=== PATIENT | male | born 1995 | race Caucasian/White ===

== ENCOUNTER 2021-05-18 17:48 | Emergency (ER) | payer BC ==
[2021-05-18 22:21] LABS: Absolute Lymphocytes (CBC) 3.6 K/uL (0.7-4.9); Basophils % 0.5 % (0-1.3); Hematocrit 42.9 % (39.6-49.0); Lymphocytes % 33.1 % (15.3-44.8); MPV 8.2 fL (7.6-11.3); RBC Red Blood Cell Count 4.67 M/uL (4.33-5.43)
[2021-05-18] MEDS ORDERED: KETOROLAC 30 MG/ML INJ ONE (22:33)
[2021-05-18 22:36] LABS: Albumin 4.2 g/dL (3.4-5.0); Bilirubin Total 0.2 mg/dL (0.2-1.0); Potassium 3.5 mmol/L (3.5-5.1); Protein, Total 7.3 g/dL (6.4-8.2)
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
[2021-05-19 00:45] VITALS: BP 131/88; TEMP 98.8; O2SAT 96
== END 2021-05-18 23:13 | disposition home or self-care (01) ==
LOC: ER 17:48
DX: G89.29 Other chronic pain (principal)
CPT/HCPCS: 36415; 80053; 85025; 96372; 99284

== ENCOUNTER 2021-07-08 14:31 | Emergency (ER) | payer BC ==
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
[2021-07-08 15:43] LABS: SARS-COV-2 RT PCR NEGATIVE (NEGATIVE)
[2021-07-08] MEDS ORDERED: METOCLOPRAMIDE 10 MG/2mL INJ ONE (16:57)
[2021-07-08] MEDS ORDERED: ACETAMINOPHEN 325 MG TABLET ONE (16:57)
[2021-07-08] MEDS ORDERED: NA CHLORIDE 0.9% 1,000 ML ONE ×2 (16:58→20:48)
[2021-07-08 17:24] LABS: Absolute Lymphocytes (CBC) 1.5 K/uL (0.7-4.9); Basophils % 0.4 % (0-1.3); Hematocrit 42.2 % (39.6-49.0); Lymphocytes % 7.1 % (15.3-44.8); MPV 7.7 fL (7.6-11.3); RBC Red Blood Cell Count 4.67 M/uL (4.33-5.43)
[2021-07-08 17:43] LABS: ALT/SGPT 45 U/L (12-78); AST/SGOT 16 U/L (15-37); Albumin 3.8 g/dL (3.4-5.0); Alkaline Phosphatase 62 U/L (45-117); BUN Blood Urea Nitrogen 11 mg/dL (7-18); Bicarbonate 27 mmol/L (21-32); Bilirubin Direct 0.1 mg/dL (0-0.2); Bilirubin Total 0.6 mg/dL (0.2-1.0); Glucose Level 94 mg/dL (74-106); Lipase 53 U/L (73-393); Potassium 3.8 mmol/L (3.5-5.1); Protein, Total 7.6 g/dL (6.4-8.2); Sodium Level 135 mmol/L (136-145)
--- NOTE | 2021-07-08 18:35 | RAD REPORT ---
EXAM DESCRIPTION: CT - Head Brain Wo Cont - 07/08/2021 6:22 pm CLINICAL HISTORY: headache, fever COMPARISON: No comparisonsNo comparisons TECHNIQUE: All CT scans are performed using dose optimization technique as appropriate and may inclu de automated exposure control or mA/KV adjustment according to patient size. FINDINGS: No intracranial hemorrhage, hydrocephalus or extra-axial fluid collection.No areas of brai n edema or evidence of midline shift. Air-fluid levels in the maxillary sinuses. Ethmoid air cell thickening. The calvarium is intact. IMPRESSION: No acute intracranial abnormality. Findings suggestive of acute sinusitis.
--- NOTE | 2021-07-08 18:42 | RAD REPORT ---
EXAM DESCRIPTION: CTChest Abdomen Pelvis W Cont - 07/08/2021 6:25 pm CLINICAL HISTORY: fever, vomiting COMPARISON: No comparisons TECHNIQUE: CT of the chest, abdomen, and pelvis was performed. All CT scans are performed using dose optimization technique as appropriate and may include automated exposure control or mA/KV adjustment according to patient size. FINDINGS: Thorax: Chest Wall: No abnormal mass Lungs: 6 mm right lower lobe pulmonary nodule. Mild dependent atelectasis. Pleura: No effusions or pneumothorax. Agnes/Mediastinum: No lymphadenopathy. Aorta/Pulmonary Arteries: Unremarkable Heart: Normal size. Abdomen/Pelvis: Liver: No acute abnormality or suspicious lesions. Biliary: No biliary ductal dilatation. Stomach: No significant focal abnormality. Duodenum: No significant focal abnormality. Pancreas: No significant abnormality. Spleen: No significant abnormality. Adrenal: No suspicious lesions. Kidney/ureter: No hydronephrosis. No renal calculi. Retroperitoneum: No retroperitoneal adenopathy. Vascular: No aneurysm. Bowel: Left lower quadrant colostomy. Large colonic stool burden. Brenda's pouch.. Peritoneum: No ascites or free air. Bladder: Circumferential bladder wall thickening with gas. Reproductive: No adnexal masses. Bones: No acute fracture. Other: n/a IMPRESSION: 1. Bladder wall thickening with gas may reflect cystitis. 2. Left-sided colostomy with large colonic stool burden may represent constipation. No bowel obstruct ion. 3. No acute findings within the chest.
[2021-07-08] MEDS ORDERED: MORPHINE 4 MG/ML SYR ONE ×2 (19:02→22:17)
[2021-07-08] MEDS ORDERED: ONDANSETRON 4 MG/2 ML VIAL ONE (19:03)
[2021-07-08 19:25] LABS: Urine Blood 1+ (Negative); Urine Glucose Negative (Negative); Urine Protein Negative (Negative); Urine pH 6.5 (5.0-7.0)
[2021-07-08] MEDS ORDERED: LIDOCAINE 1% MPF 30 ML VIAL ONE (19:34)
[2021-07-08 19:50] LABS: Urine Bacteria LOADED /HPF (NONE SEEN); Urine RBC <5 /HPF (NONE SEEN)
--- NOTE | 2021-07-08 19:51 | RAD REPORT ---
EXAM DESCRIPTION: US - Scrotum Testicles - 07/08/2021 7:33 pm CLINICAL HISTORY: scrotal pain COMPARISON: Scrotum Testicles dated 06/04/2021 FINDINGS: The right testicle 4.3 x 2.2 x 3 cm with volume of 14.2 mL. No intratesticular masses or e vidence of testicular torsion. The left testicle 4 x 1.9 x 2.9 cm with volume of 11.5 mL. No intratesticular masses or evidence of t esticular torsion. Both epididymides are normal in size and appearance. Small left hydrocele. IMPRESSION: Bilateral testicular blood flow. No significant change compared with 06/04/2021.
[2021-07-08 20:38] LABS: Blood Morphology Comment NOT SEEN (NOT SEEN); Platelet Estimate ADEQ
[2021-07-08 21:39] LABS: Appearance CLEAR (CLEAR); Body Fluid Source CSF; Body Fluid WBC 1 /mm^3; Color of fluid Colorless (COLORLESS); Fluid Total Volume 6 ml
[2021-07-08 21:45] LABS: Appearance CLEAR (CLEAR); Body Fluid Source CSF; Body Fluid WBC 1 /mm^3; Color of fluid Colorless (COLORLESS)
[2021-07-08] MEDS ORDERED: CEFTRIAXONE 1000 MG/VIAL ONE (22:18)
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
[2021-07-08 23:13] VITALS: TEMP 98.6; O2SAT 99
[2021-07-08 23:14] VITALS: BP 125/85
[2021-07-09 10:21] LABS: CSF Glucose 58
== END 2021-07-08 23:09 | disposition home or self-care (01) ==
LOC: ER 14:31
DX: N39.0 Urinary tract infection, site not specified (principal); J01.80 Other acute sinusitis; Z20.822 Contact with and (suspected) exposure to COVID-19
CPT/HCPCS: 87040 ×2; 87070 ×2; 87088; 85025; 87086; 80048; 36415; 89050 ×2; 86308; 84157; 82945; 80076; 87081; 83605; 87077; 87186; 83690; 84145; 0240U; 70450; 71260; 74177; 76870; 62270; 96375; 96374; 99283; Q9967; J2765; J7030 ×2; J2405; 81003; 81015

== ENCOUNTER 2021-07-24 06:47 | Day surgery (SDC) | payer BC ==
[2021-07-24] MEDS ORDERED: Ringers Lactate 1,000 ML IV ONE (07:16)
[2021-07-24] MEDS ORDERED: MIDAZOLAM HCL 2 MG/2 ML INJ IV ONE (07:50)
[2021-07-24] MEDS ORDERED: MIDAZOLAM HCL 2 MG/2 ML INJ ONE (07:51)
[2021-07-24] MEDS ORDERED: propofoL 200 MG/20 ML VIAL IV ONE ×2 (08:00→08:12)
[2021-07-24] MEDS ORDERED: ONDANSETRON 4 MG/2 ML VIAL ONE (08:00)
--- NOTE | 2021-07-24 08:34 | ENDO RPT ---
[address], [address] COLONOSCOPY PROCEDURE REPORT EXAM DATE: 07/24/2021 PATIENT NAME: Lino Cabral MR #: [id number] BIRTHDATE: 1995 ATTENDING: Hector Grayson DR STATUS: outpatient OPERATIONS SUPPORT MANAGER: Amanda Swartz RN and Melani Olmos INDICATIONS: The patient is a 26 yr old Male here for a colonoscopy due to History of Colostomy due to trauma PROCEDURE PERFORMED: Screening Colonoscopy MEDICATIONS: Per Anesthesia. ESTIMATED BLOOD LOSS: None CONSENT: The patient understands the risks and benefits of the procedure and understands that these risks include, but are not limited to: sedation, allergic reaction, infection, perforation and/or bleeding. Alternative means of evaluation and treatment include, among others: physical exam, x-rays, and/or surgical intervention. The patient elects to proceed with this endoscopic procedure. DESCRIPTION OF PROCEDURE: During intra-op preparation period all mechanical medical equipment was checked for proper function. Hand hygiene and appropriate measures for infection prevention was taken. Procedure, possible complications, alternatives including, but not limited to possibility of bleeding, perforation, tear, infection, sepsis, need for surgery, need for blood transfusion, were explained to the patient. After the risks, benefits and alternatives of the procedure were thoroughly explained, Informed consent was verified, confirmed and timeout was successfully executed by the treatment team. The patient was placed in the left lateral position. A digital rectal exam was performed and revealed no abnormalities of the rectum. After appropriate level of anesthesia, the scope was passed. The EC-[id number] ([id number]) endoscope was introduced through the anus and advanced to the ileum. The quality of the prep was poor. The instrument was then slowly withdrawn as the colon was fully examined. Scope withdrawal time was 8 minutes. COLON FINDINGS: Unable to evaluate rectum due to stool / material burden - solid, scope passed to 21 cm from anal verge. Completed colostomy through RUQ stoma to distal ileum. The colonic mucosa appeared normal. Retroflexed views revealed no abnormalities. The scope was then completely withdrawn from the patient and the procedure terminated. ADVERSE EVENTS: There were no complications. IMPRESSIONS: 1. Unable to evaluate rectum due to stool / material burden - solid Completed colostomy through RUQ stoma to distal ileum 2. The colonic mucosa appeared normal RECOMMENDATIONS: 1. avoid NSAIDS for 2 weeks 2. fiber rich diet 3. follow-up: office 2 week(s) 4. Monitor for any evidence of rectal bleeding. 5. increase dietary water RECALL: Return in 7 day(s) for Flexible Sigmoidoscopy. Hector Grayson DR eSigned: Hector Grayson DR 07/24/2021 8:34 AM cc: CPT CODES: ICD9 CODES: PATIENT NAME: Lino Cabral MR#: [id number]
[2021-07-24 09:11] VITALS: TEMP 97.8
[2021-07-24 09:12] VITALS: O2SAT 98
[2021-07-24 09:13] VITALS: BP 115/78
== END 2021-07-24 09:15 | disposition home or self-care (01) ==
LOC: OR 06:47
PROVIDERS: ATTEND Surgery
PROC: 0DJD8ZZ Inspection of Lower Intestinal Tract, Via Natural or Artificial Opening Endoscopic (ICD-10-PCS; principal; 2021-07-24 08:00)
DX: Z12.11 Encounter for screening for malignant neoplasm of colon (principal); Z93.3 Colostomy status; Z20.822 Contact with and (suspected) exposure to COVID-19
CPT/HCPCS: 45378; U0003; J2704 ×2; J2250 ×2; J7120; J2405

== ENCOUNTER 2021-08-07 10:51 | Day surgery (SDC) | payer BC ==
[2021-08-07] MEDS ORDERED: Ringers Lactate 1,000 ML IV ONE ×2 (11:02→13:40)
[2021-08-07] MEDS ORDERED: CEFAZOLIN/NS 1gm 1 GM/50 ML BAG ONE (11:03)
[2021-08-07] MEDS ORDERED: ACETAMINOPHEN 500 MG TAB ONE (11:12)
[2021-08-07] MEDS ORDERED: CELECOXIB 100 MG CAPSULE ONE (11:12)
[2021-08-07] MEDS ORDERED: CELECOXIB 100 MG CAPSULE PO ONE (11:15)
[2021-08-07] MEDS ORDERED: ACETAMINOPHEN 500 MG TAB PO ONE (11:15)
[2021-08-07] MEDS ORDERED: METHYLENE BLUE 0.5% 10 ML AMP ONE (12:19)
[2021-08-07] MEDS ORDERED: BUPIVACAINE 0.25% PF 10 ML VIAL ONE (12:21)
[2021-08-07] MEDS ORDERED: LIDOCAINE 1% W/EPI 1:100,000 MDV 50 ML VIAL ONE (13:17)
[2021-08-07] MEDS ORDERED: FENTANYL CITR 100 MCG/2 ML ONE (13:19)
[2021-08-07] MEDS ORDERED: Phenylephrine HCl 10 MG/ML 1 ML VIAL ONE (13:37)
[2021-08-07] MEDS ORDERED: GLYCOPYRROLATE 0.2 MG/ML SYR ONE (13:45)
[2021-08-07] MEDS ORDERED: NEOSTIGMINE 1 MG/ML -5 ML ONE (13:45)
[2021-08-07] MEDS ORDERED: KETOROLAC 30 MG/ML INJ ONE (13:45)
--- NOTE | 2021-08-07 13:48 | P.OP ---
Preoperative diagnosis: Perianal Fistula Postoperative diagnosis: Perianal Fistula Primary procedure: Exam under anesthesia Secondary procedure: Colonscopy to rectal resection Other procedure(s): injection of amniofill to fistula Anesthesia: injection methylene blue Estimated blood loss: <2 cc Specimen: none Findings: fistula communicates with anal canal, rectal stump ~ 15cc in length Complications: None Implants: amniofill Transferred to: Recovery Room Condition: Good
[2021-08-07] MEDS ORDERED: ONDANSETRON 4 MG/2 ML VIAL ONE (14:33)
[2021-08-07] MEDS: HYDROMORPHONE HCL 1 MG/ML INJ ONE ×2 (14:35→14:40)
[2021-08-07 16:04] VITALS: BP 117/78; TEMP 97.9; O2SAT 98
--- NOTE | 2021-08-07 23:47 | OP ---
Date of Procedure: 08/07/2021 Surgeon: Hector Grayson MD, Preoperative Diagnosis: Perianal fistula. Postoperative Diagnosis: Perianal fistula. Procedure Performed: 1.Exam under anesthesia. 2.Colonoscopy to rectal resection. 3.Injection of AmnioFill in the fistulous tract. Anesthesia: General endotracheal. Estimated Blood Loss: Less than 2 cc. Specimen: None. Findings: The patient's rectal stump was approximately 15 cm in length. A suture was appreciated at the distal aspect. Additionally, there was a small punctate opening on the 7 o'clock to 8 o'clock p osition of the proximal rectum. This did not appear to be a fistulous connection; however, I was uns ure if this was a fistulous connection initially, but it turned out it was not. The fistula ultimate ly turned out to be communicated with the anal canal from the scrotal fistula. Complications: None. Implants: AmnioFill. The patient was transferred to recovery room in good condition. Procedure In Detail: After informed consent was obtained, the patient was brought to the operating r oom, prepped and draped in usual sterile fashion. After adequate anesthesia was achieved, the patien t was placed in the lithotomy position. A rigid proctoscopy was performed after dilating the anus up gently with lubrication. The anus was found to be quite patulous prior, but did not require any sig nificant dilatation other than simple digital examination. The proctoscope was advanced to approxima tely 14 to 15 cm in length. It was difficult to maintain air in the anal canal as the anus was quite patulous and tone appeared decreased. At this time, I appreciated a suture at the distal aspect of the resection line at the rectal stump. I then withdrew the proctoscope and appreciated 2 small open ings both at approximately the 8 o'clock position; one was in the rectum, which did not appear to hav e any leakage of material. Pulling the proctoscope back to the anal vault near the dentate line, I a ppreciated a small opening near the dentate line at approximately 7 to 8 o'clock position, which appe ared to have an epithelialized tract concerning for a possible fistula. At this time, then I opted t o place the colonoscope into the patient's rectal stump and once again verified the above findings. I then injected methylene blue through a fistulous tract in his scrotum, which was quite easy to appr eciate. It was at the base of the scrotum. I injected methylene blue using a soft Angiocath and it injected quite easily, and the colonoscope appreciated methylene blue dye emanating from near the chris verge as described above into the 7 to 8 o'clock position. This appeared to be the fistulous tract . I then examined the previous area of concern for fistula and did not find any methylene blue emana ting from this. At this point, I opted to not place any clips as it was near the dentate line and as such, I opted to terminate this portion of the procedure. As such, the colon was rinsed out. I irr igated until clean and then the colonoscope was removed. I then mixed AmnioFill into a slurry and pl aced it into a 20 cc syringe. Using a 14-gauge Angiocath, injected the AmnioFill product into the fi stulous tract after cleansing it with sterile saline. I then placed a small patch of AmnioFill into the anal aspect of this area as well and terminated the procedure after placing Gelfoam into the anus and covering the AmnioFill with a sterile dressing. The patient tolerated the procedure well withou t evidence of complication and transferred to PACU in good condition. All counts were correct at the end of the case. FADY/MIHIR Voice ID: [id number] Report ID: [id number]
== END 2021-08-07 15:50 | disposition home or self-care (01) ==
LOC: OR 10:51
PROVIDERS: ATTEND Surgery
PROC: 0DJD8ZZ Inspection of Lower Intestinal Tract, Via Natural or Artificial Opening Endoscopic (ICD-10-PCS; principal; 2021-08-07 12:45)
PROC: 0DQQ7ZZ Repair Anus, Via Natural or Artificial Opening (ICD-10-PCS; 2021-08-07 12:45)
DX: K60.5 Anorectal fistula (principal); Z20.822 Contact with and (suspected) exposure to COVID-19; Z93.3 Colostomy status
CPT/HCPCS: 45378; 46999; U0003; J2370; J3010; J1170; J2710; J0690; J7120 ×2; J2405

== ENCOUNTER 2021-11-24 12:56 | Emergency (ER) | payer BC ==
--- OUTSIDE RECORDS SUMMARY | 2021-11-24 12:59 | XMS REPORT | Continuity of Care Document ---
:1995 Author Organization [facility] t Address [address] [place] [address] Care Team Providers Name Role Phone Kendall Attending Clinician Unavailable LAVINIA Attending Clinician Unavailable MARCO ANTONIO Attending Clinician Unavailable Benigno Attending Clinician Unavailable SAMEER Attending Clinician Unavailable LAVINIA Attending Clinician Unavailable TC ORNELAS Attending Clinician Unavailable AIYANA Attending Clinician Unavailable Maude Redmond Attending Clinician [phone] Kiki Attending Clinician Unavailable LAVINIA Admitting Clinician Unavailable MARCO ANTONIO Admitting Clinician Unavailable Benigno Admitting Clinician Unavailable Kiki Admitting Clinician Unavailable Payers Payer Name Policy Type Policy Number Effective Date Expiration Date S ourromelia BCBS ADV O [id number] 2021 [place]CHANGE 00:00:00 [place] [id number] 2020 ADVANTAGE (HMO) 00:00:00 [facility] [id number] 2020 HEALTH 00:00:00 BLUE ADVANTAGE [id number] 2021 [facility] - 00:00:00 BCBS Problems Condition Condition Condition Status Onset Resolution Last Treating Co mments Source Name Details Category Date Date Treatment Clinician Date Major Major Problem Active 2020-07 NPI:186 depressive Depressive 08-08 62768 disorder Disorder 00:00: 00 Posttrauma Posttrauma Problem Active 2020-07 N PI:186 tic stress tic Stress 08-08 23306 disorder Disorder 00:00: 00 Allergies, Adverse Reactions, Alerts Allergy Allergy Status Severity Reaction(s) Onset Inactive Treating Comm ents Source Name Type Date Date Clinician NO KNOWN Allergy Active NPI:118 ALLERGIE [id number] S Social History Smoking Status Start Date Stop Date Source Never Smoker Medications Ordered Filled Start Stop Current Ordering Indication Dosage Frequency Signature Comments Components Source Medication Medication Date Date Medication? Clinician (SIG) Name Name doxepin 25 doxepin 25 No doxepin 25 NPI:186 mg capsule mg capsule mg capsule [id number] TAKE 1 TAKE 1 TAKE 1 CAPSULE BY CAPSULE BY CAPSULE BY MOUTH ONCE MOUTH ONCE MOUTH ONCE DAILY AT DAILY AT DAILY AT BEDTIME BEDTIME BEDTIME doxepin 50 doxepin 50 No doxepin 50 NPI:186 mg capsule mg capsule mg capsule [id number] TAKE 1 TO 2 TAKE 1 TO 2 TAKE 1 TO CAPSULES BY CAPSULES BY 2 CAPSULES MOUTH ONCE MOUTH ONCE BY MOUTH DAILY AT DAILY AT ONCE DAILY BEDTIME BEDTIME AT BEDTIME gabapentin gabapentin No gabapentin NPI:186 400 mg 400 mg 400 mg [id number] capsule capsule capsule TAKE 1 TAKE 1 TAKE 1 CAPSULE BY CAPSULE BY CAPSULE BY MOUTH THREE MOUTH THREE MOUTH TIMES DAILY TIMES DAILY THREE FOR 27 DAYS FOR 27 DAYS TIMES DAILY FOR 27 DAYS hydrocodone hydrocodone No hydrocodon NPI:186 7.5 7.5 e 7.5 1922321 mg-acetamin mg-acetamin mg-acetami ophen 325 ophen 325 nophen 325 mg tablet mg tablet mg tablet TAKE 1 TAKE 1 TAKE 1 TABLET BY TABLET BY TABLET BY MOUTH 4 MOUTH 4 MOUTH 4 TIMES DAILY TIMES DAILY TIMES FOR 27 DAYS FOR 27 DAYS DAILY FOR 27 DAYS methocarbam methocarbam No methocarba NPI:186 ol 750 mg ol 750 mg mol 750 mg [id number] tablet TAKE tablet TAKE tablet 1 TABLET BY 1 TABLET BY TAKE 1 MOUTH TWICE MOUTH TWICE TABLET BY DAILY FOR DAILY FOR MOUTH 27 DAYS 27 DAYS TWICE DAILY FOR 27 DAYS naloxone 4 naloxone 4 No naloxone 4 NPI:186 mg/actuatio mg/actuatio mg/actuati [id number] n nasal n nasal on nasal spray spray spray ADMINISTER ADMINISTER ADMINISTER A SINGLE A SINGLE A SINGLE SPRAY SPRAY SPRAY INTRANASALL INTRANASALL INTRANASAL Y INTO ONE Y INTO ONE LY INTO NOSTRIL. NOSTRIL. ONE CALL 911. CALL 911. NOSTRIL. MAY REPEAT MAY REPEAT CALL 911. X 1. X 1. MAY REPEAT X 1. ondansetron ondansetron No ondansetro NPI:186 8 mg 8 mg n 8 mg [id number] disintegrat disintegrat disintegra ing tablet ing tablet ting DISSOLVE 1 DISSOLVE 1 tablet TABLET IN TABLET IN DISSOLVE 1 MOUTH ONCE MOUTH ONCE TABLET IN DAILY DAILY MOUTH ONCE NEEDED NEEDED DAILY NEEDED sertraline sertraline No sertraline NPI:186 50 mg 50 mg 50 mg [id number] tablet TAKE tablet TAKE tablet 1 TABLET BY 1 TABLET BY TAKE 1 MOUTH ONCE MOUTH ONCE TABLET BY DAILY IN DAILY IN MOUTH ONCE THE MORNING THE MORNING DAILY IN THE MORNING tramadol 50 tramadol 50 No tramadol NPI:186 mg tablet mg tablet 50 mg [id number] TAKE 1 TAKE 1 tablet TABLET BY TABLET BY TAKE 1 MOUTH TWICE MOUTH TWICE TABLET BY DAILY FOR DAILY FOR MOUTH 27 DAYS 27 DAYS TWICE DAILY FOR 27 DAYS Vital Signs Vital Name Observation Time Observation Value Comments Source HEIGHT 2021-11-23 10:24:00 167.6 cm WEIGHT 2021-11-23 10:24:00 82.6 kg HEIGHT 2021-11-19 11:36:00 167.6 cm WEIGHT 2021-11-19 11:36:00 86.183 kg BP Diastolic 2021-09-28 00:00:00 87 mm[Hg] NPI:[id number] BP Systolic 2021-09-28 00:00:00 133 mm[Hg] NPI:1861 [id number] Body Weight 2021-09-28 00:00:00 187.8 [lb_av] NPI:775 [id number] HEIGHT 2021-09-26 11:14:00 167.6 cm WEIGHT 2021-09-26 11:14:00 86.183 kg Procedures This patient has no known procedures. Plan of Care Planned Activity Planned Date Details Comments Source Future Appointment 2021-12-07 09:45:00 Chris Cervantes [address]; , [place] [address] Future Appointment 2021-12-01 14:00:00 Leonard Gibbons[address]; , [place] [address] Encounters Start End Encounter Admission Attending Care Care Encounter Source Date/Time Date/Time Type Type Clinicians Facility Department ID 2021-08-12 Outpatient KATRINA Argueta [facility] NPI:174 14:38:55 Renetta [id number] 2021-08-12 Outpatient KATRINA Argueta [facility] NPI:174 14:11:37 Renetta [id number] 2021-11-23 2021-11-23 Outpatient JASWANT KATE [facility] SLE Surgery [id number] [facility] 09:54:00 20:00:00 2021-11-23 2021-11-23 Outpatient ZACHARIAHE_QUENTIN AZLALO [facility] 117 NPI:186 04:48:00 04:48:00 N [id number] 2021-11-19 2021-11-19 Outpatient [facility] [id number] SLE 11:39:44 23:59:00 2021-11-18 2021-11-18 Outpatient Goldfarb_D U [facility] [id number] NPI:124 02:57:00 02:57:00 [id number] 2021-11-10 2021-11-10 Outpatient ZACHARIAHE_QUENTIN [facility] NPI:186 01:59:00 01:59:00 N [id number] 2021-11-10 2021-11-10 Andrea DOMINGUEZ [place] - [id number] N PI:186 00:00:00 00:00:00 Susana Fierro 174 [id number] PSYD: 1700 [facility] [address] , Ph. ([phone]) --20072021-11-04 2021-11-04 Outpatient SAMEER [facility] [id number] [facility] 11:34:49 11:34:49 MARIANO guerreroe of Medicin e 2021-10-27 2021-10-27 Outpatient LAVINIA [facility] [id number] [facility] 10:00:28 10:12:48 Osmani champion of Medicin e 2021-10-27 2021-10-27 Outpatient SAGLIMERICHARD [facility] 117 NPI:186 06:07:00 06:07:00 N [id number] 2021-10-27 2021-10-27 Outpatient SAGLIME_JOH AZHOP [facility] 117 [id number] NPI:186 06:07:00 06:07:00 N [id number] 2021-10-27 2021-10-27 Andrea Pitt [place] - [id number] N PI:186 00:00:00 00:00:00 Susana Fierro 174 1779 PSYD: 1700 Scientologist [facility] [place] [facility] [address] , Ph. ([phone]) --20072021-10-09 2021-10-09 Outpatient SAGLIME_JOH AZHOP [facility] 117 [id number] NPI:186 02:44:00 02:44:00 N [id number] 2021-10-06 2021-10-06 Outpatient KATE, ADAMA [facility] [id number] [facility] 14:49:21 16:24:28 Osmani champion of Medicin e 2021-10-05 2021-10-05 Outpatient SAGLIME_JOH AZHOP [facility] 117 [id number] NPI:186 06:21:00 06:21:00 N [id number] 2021-10-05 2021-10-05 Outpatient SAGLIME_JOH AZHOP [facility] 117 [id number] NPI:186 06:21:00 06:21:00 N [id number] 2021-09-28 2021-09-28 Outpatient SAGLIME_JOH AZHOP [facility] 117 [id number] NPI:186 12:21:00 12:21:00 N [id number] 2021-09-28 2021-09-28 Outpatient SAGLIME_JOH AZHOP [facility] 117 [id number] NPI:186 12:21:00 12:21:00 N [id number] 2021-09-28 2021-09-28 Chris DOMINGUEZ [place] - [id number] N PI:186 00:00:00 00:00:00 Scooter Meza 1 [id number] MD Helen: Scientologist [address] [place] [address] , Ph. ([phone]) --20072021-09-26 2021-09-26 Emergency ER JOHNSON, [facility] Emergency [id number] [facility] 11:09:00 13:32:00 CHRIS 2021-09-15 2021-09-15 Outpatient SAGLIME_JOH MEHOP [facility] 117 [id number] NPI:186 02:05:00 02:05:00 N [id number] 2021-09-15 2021-09-15 Andrea DOMINGUEZ [place] - [id number] N PI:186 00:00:00 00:00:00 Susana Fierro 174 1779 PSYD: 1700 Scientologist [facility] [address] , Ph. ([phone]) --20072021-09-09 2021-09-09 Outpatient Goldfarb_D [facility] [id number] NPI:124 04:22:00 04:22:00 [id number] 2021-09-07 2021-09-07 Outpatient SAGLIME_JOH MEHOP [facility] 117 [id number] NPI:186 02:12:00 02:12:00 N [id number] 2021-09-07 2021-09-07 Outpatient SAGLIME_JOH MEHOP [facility] 117 [id number] NPI:186 02:12:00 02:12:00 N [id number] 2021-09-07 2021-09-07 Andrea DOMINGUEZ - [id number] N PI:186 00:00:00 00:00:00 Susana Fierro 174 1779 PSYD: 1700 Scientologist [address], [facility] [address] , Ph. ([phone]) --20072021-09-07 2021-09-07 [facility] [id number] [place] 00:00:00 00:00:[address] 2021-09-04 2021-09-04 Outpatient SAGLIME_JOH MEHOP MEHOP 117 [id number] NPI:186 03:37:00 03:37:00 N [id number] 2021-08-28 2021-08-28 Outpatient Goldfarb_D [facility] [id number] NPI:124 10:12:00 10:12:00 [id number] 2021-08-27 2021-08-27 Outpatient Goldfarb_D [facility] [id number] NPI:124 03:33:00 03:33:00 [id number] 2021-08-27 2021-08-27 Outpatient Ruy, [facility]U [id number] 00:00:00 00:00:00 Bakari Santoro [id number] 2021-08-25 2021-08-25 Outpatient Goldfarb_D [facility] [id number] NPI:124 12:54:00 12:54:00 [id number] 2021-08-24 2021-08-24 [facility] 117 NPI:186 01:53:00 01:53:00 N [id number] 2021-08-24 2021-08-24 Andrea Pitt [facility] - [id number] N PI:186 00:00:00 00:00:00 Susana Fierro 174 1779 PSYD: 1700 Scientologist [facility] [address] , Ph. ([phone]) --20072021-08-20 2021-08-20 Outpatient Goldfarb_D [facility] [id number] [id number] NPI:124 12:26:00 12:26:00 [id number] 2021-08-10 2021-08-10 Outpatient SAGLIME_JOH AZHOP [facility] [id number] NPI:186 07:48:00 07:48:00 N [id number] 9 2021-08-10 2021-08-10 Outpatient SAGLIME_JOH AZHOP [facility] 117 520 NPI:186 01:24:00 01:24:00 N [id number] 2021-08-05 2021-08-05 Outpatient SAGLIME_JOH AZHOP [facility] 117 NPI:186 10:48:00 10:48:00 N [id number] 9 2021-08-03 2021-08-03 Outpatient SAGLIME_QUENTIN DOMINGUEZ [facility]OP 117 NPI:186 12:20:00 12:20:00 N [id number] 2021-08-03 2021-08-03 Outpatient SAGLIME_QUENTIN [facility] 117 NPI:186 12:20:00 12:20:00 N [id number] 2021-08-03 2021-08-03 Andrea DOMINGUEZ [id number] N PI:186 00:00:00 00:00:00 Susana Fierro 174 1779 PSYD: 1700 Scientologist [place] [address] [address] [address] , Ph. ([phone]) --20072021-07-27 2021-07-27 Outpatient DESTINILIME_QUENTIN AZLALO [facility] 117 NPI:186 10:59:00 10:59:00 N [id number] 2021-07-27 2021-07-27 Andrea DOMINGUEZ [id number] N PI:186 00:00:00 00:00:00 Susana Fierro 174 1779 PSYD: 1700 Scientologist [place] [address] [address] , Ph. ([phone]) --20072021-07-26 2021-07-26 [facility] NPI:186 05:57:00 05:57:00 N [id number] 2021-07-24 2021-07-24 ambulatory STLMLC STLMLC [id number] NPI:174 00:00:00 00:00:00 [id number] 2021-07-22 2021-07-22 ambulatory STLMLC STLMLC [id number] NPI:174 00:00:00 00:00:00 [id number] 2021-07-16 2021-07-16 Outpatient SAGLIME_QUENTIN AZHOP [facility] 117 NPI:186 04:19:00 04:19:00 N [id number] 2021-07-09 2021-07-09 ambulatory STLMLC STLMLC [id number] NPI:174 00:00:00 00:00:00 [id number] 2021-07-08 2021-07-08 Outpatient Georginauniga_S [facility] 2020 NPI:167 02:09:00 02:09:00 [id number] 2021-07-06 2021-07-06 ambulatory STLMLC STLMLC [id number] NPI:174 00:00:00 00:00:00 [id number] 2021-06-30 2021-06-30 Outpatient SAGLIME_JOH MEHOP ME[facility]OP 117 [id number] NPI:186 04:09:00 04:09:00 N [id number] 2021-06-30 2021-06-30 Outpatient SAGLIME_JOH MEHOP [facility] 117 [id number] NPI:186 04:09:00 04:09:00 N [id number] 2021-06-30 2021-06-30 Outpatient SAGLIME_JOH MEHOP [facility] 117 [id number] NPI:186 02:04:00 02:04:00 N [id number] 2021-06-30 2021-06-30 Andrea DOMINGUEZ [place] - [id number] N PI:186 00:00:00 00:00:00 Susana Fierro 174 1779 PSYD: 1700 Scientologist [facility] [address] , Ph. ([phone]) 245--20072021-06-22 2021-06-22 ambulatory STLMLC STLMLC [id number] NPI:174 00:00:00 00:00:00 [id number] 2021-06-08 2021-06-08 Outpatient SAGLIME_JOH MEHOP ME[facility]OP 117 [id number] NPI:186 04:51:00 04:51:00 N [id number] 2021-06-08 2021-06-08 Outpatient SAGLIME_JOH MEHOP [facility] 117 [id number] NPI:186 04:24:00 04:24:00 N [id number] 2021-06-08 2021-06-08 Andrea DOMINGUEZ [place] - [id number] N PI:186 00:00:00 00:00:00 Susana Fierro 174 1779 PSYD: 1700 Scientologist [facility] [address] , Ph. ([phone]) [phone] 2021-05-27 ambulatory STLMLC STLMLC [id number] NPI:174 00:00:00 00:00:00 [id number] 2021-05-26 2021-05-26 Outpatient MARYLU DOMINGUEZ AZLALO 117 [id number] NPI:186 11:02:00 11:02:00 N [id number] Results This patient has no known results.
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
[2021-11-24 17:27] VITALS: BP 136/79; TEMP 98.6; O2SAT 94
== END 2021-11-24 15:40 | disposition home or self-care (01) ==
LOC: ER 12:56
DX: R33.9 Retention of urine, unspecified (principal)
CPT/HCPCS: 99281

== ENCOUNTER 2021-12-02 11:25 | Emergency (ER) | payer BC ==
--- OUTSIDE RECORDS SUMMARY | 2021-12-02 11:29 | XMS REPORT | Continuity of Care Document ---
:1995 Author Organization [facility] t Address [address] [place] [address] [address]. [address] [place] [address] Care Team Providers Name Role Phone Deangelo AMANDA Primary Care Physician Kendall Attending Clinician Unavailable Becca ALCALA Attending Clinician KATE Attending Clinician Unavailable MARCO ANTONIO Attending Clinician Unavailable Benigno Attending Clinician Unavailable SAMEER Attending Clinician Unavailable LAVINIA Attending Clinician Unavailable TC ORNELAS Attending Clinician Unavailable AIYANA Attending Clinician Unavailable Maude Redmond Attending Clinician [phone] Melchor_Oscar Attending Clinician Unavailable KATE Admitting Clinician Unavailable MARCO ANTONIO Admitting Clinician Unavailable Benigno Admitting Clinician Unavailable Melchor_Oscar Admitting Clinician Unavailable Payers Payer Name Policy Type Policy Number Effective Date Expiration Date S l[place] [employer] ADV HMO [id number] 2021 EXCHANGE 00:00:00 [place] [id number] 2020 ADVANTAGE (HMO) 00:00:00 BERTHA EDUARDO [id number] 2020 HEALTH 00:00:00 Problems Condition Condition Condition Status Onset Resolution Last Treating Co mments Source Name Details Category Date Date Treatment Clinician Date Major Major Problem Active 2020-07 [place] depressive Depressive -22 da disorder Disorder 00:00: [facility] Posttrauma Posttrauma Problem Active 2020-07 [place] tic stress tic Stress - da disorder Disorder 00:00: [facility] Allergies, Adverse Reactions, Alerts Allergy Allergy Status Severity Reaction(s) Onset Inactive Treating Comm ents Source Name Type Date Date Clinician NO KNOWN Allergy Active [facility] Social History Social Habit Start Date Stop Date Quantity Comments Source Exposure to 2021-11-17 2021-11-27 Not sure [facility] Colle e SARS-CoV-2 00:00:00 08:11:00 of Medicine (event) Alcohol intake 2021-11-04 2021-11-04 Current drinker [facility] 00:00:00 00:00:00 of alcohol of Medicine (finding) Tobacco use and 2021-10-09 2021-10-09 [facility] [place] exposure 00:00:00 00:00:00 non-user of Medicine Sex Assigned At [birth year] [facility] [employer] 00:00:00 00:00:00 of Medicine Smoking Status Start Date Stop Date Source Never smoked tobacco [facility] Nickie ege of Medicine Medications Ordered Filled Start Stop Current Ordering Indication Dosage Frequency Signature Comments Components Source Medication Medication Date Date Medication? Clinician (SIG) Name Name Tamsulosin 2021- Yes .4mg Take 0.4 [facility] HCl 0.4 MG 5- 05-28 mg by [facility] CAPS 00:00: 04:59 mouth of 00 :00 daily for Medicin 14 days. e oxycodone Yes TAKE 1 [facility] (ROXICODONE 5-10 TABLET BY Col lege ) 5 MG 00:00: MOUTH of immediate 00 EVERY 6 Medicin release HOURS e tablet NEEDED FOR POST OP PAIN (MAX OF 20MG PER DAY) clindamycin 2021- Yes 300mg Take 1 [facility] (CLEOCIN) 5-10 - capsule by Col lege 300 MG 00:00: 04:59 mouth 3 of capsule 00 :00 times Medicin daily for e 21 days. Tamsulosin 2021- No .4mg Take 0.4 [facility] HCl 0.4 MG 5-09 05-13 mg by [facility] CAPS 00:00: 00:00 mouth. of 00 :00 Medicin e hydrocodone Yes TAKE 1 [facility] or -acetaminop 3-21 TABLET BY Col lege hen (NORCO) 00:00: MOUTH 4 of 7.5-325 MG 00 TIMES Medicin per tablet DAILY FOR e 29 DAYS ondansetron Yes DISSOLVE 1 [facility] (ZOFRAN-ODT 3-21 TABLET ON Col lege ) 8 mg 00:00: TOP OF of disintegrat 00 TONGUE Medici n ing tablet ONCE DAILY e NEEDED tramadol Yes TAKE 1 [facility] (ULTRAM) 50 3-21 TABLET BY Col lege MG tablet 00:00: MOUTH of 00 TWICE Medicin DAILY FOR e 29 DAYS sertraline Yes TAKE 1 [facility] (ZOLOFT) 50 3-14 TABLET BY Col lege MG tablet 00:00: MOUTH ONCE of 00 DAILY IN Medicin THE e MORNING doxepin Yes [facility] (SINEQUAN) 3-07 College 50 MG 00:00: of capsule 00 Medicin e gabapentin Yes gabapentin B josé (NEURONTIN) 1-28 400 mg Colleg e 400 MG 00:00: capsule of capsule 00 TAKE 1 Medicin CAPSULE BY e MOUTH THREE TIMES DAILY FOR 28 DAYS methocarbam Yes methocarba [facility] ol 1-28 mol 750 mg [place] (ROBAXIN) 00:00: tablet of 750 MG 00 TAKE 1 Medicin tablet TABLET BY e MOUTH ONCE DAILY FOR 28 DAYS doxepin 25 doxepin 25 No doxepin 25 [place] mg capsule mg capsule mg capsule da TAKE 1 TAKE 1 TAKE 1 [facility] CAPSULE BY CAPSULE BY CAPSULE BY al MOUTH ONCE MOUTH ONCE MOUTH ONCE Health DAILY AT DAILY AT DAILY AT Out re BEDTIME BEDTIME BEDTIME h Program doxepin 50 doxepin 50 No doxepin 50 [place] mg capsule mg capsule mg capsule da TAKE 1 TO 2 TAKE 1 TO 2 TAKE 1 TO [facility] CAPSULES BY CAPSULES BY 2 CAPSULES al MOUTH ONCE MOUTH ONCE BY MOUTH Health DAILY AT DAILY AT ONCE DAILY O [facility] BEDTIME BEDTIME AT BEDTIME h Program gabapentin gabapentin No gabapentin [place] 400 mg 400 mg 400 mg da capsule capsule capsule [facility] p TAKE 1 TAKE 1 TAKE 1 al CAPSULE BY CAPSULE BY CAPSULE BY Health MOUTH THREE MOUTH THREE MOUTH Outreac TIMES DAILY TIMES DAILY THREE h FOR 27 DAYS FOR 27 DAYS TIMES Program DAILY FOR 27 DAYS hydrocodone hydrocodone No hydrocodon [place] 7.5 7.5 e 7.5 da mg-acetamin mg-acetamin mg-acetami [facility] ophen 325 ophen 325 nophen 325 al mg tablet mg tablet mg tablet Health TAKE 1 TAKE 1 TAKE 1 Outreac TABLET BY TABLET BY TABLET BY h MOUTH 4 MOUTH 4 MOUTH 4 Progra m TIMES DAILY TIMES DAILY TIMES FOR 27 DAYS FOR 27 DAYS DAILY FOR 27 DAYS methocarbam methocarbam No methocarba [place] ol 750 mg ol 750 mg mol 750 mg da tablet TAKE tablet TAKE tablet [facility] 1 TABLET BY 1 TABLET BY TAKE 1 al MOUTH TWICE MOUTH TWICE TABLET BY Health DAILY FOR DAILY FOR MOUTH Outr eac 27 DAYS TWICE h DAILY FOR Program naloxone 4 naloxone 4 No naloxone 4 [place] mg/actuatio mg/actuatio mg/actuati da n nasal n nasal on nasal [facility] spray spray spray al ADMINISTER ADMINISTER ADMINISTER Health A SINGLE A SINGLE A SINGLE Out reac SPRAY SPRAY SPRAY h INTRANASALL INTRANASALL INTRANASAL Program Y INTO ONE Y INTO ONE LY INTO NOSTRIL. NOSTRIL. ONE CALL 911. CALL 911. NOSTRIL. NOVEMBER REPEAT NOVEMBER REPEAT CALL 911. X 1. X 1. NOVEMBER REPEAT X 1. ondansetron ondansetron No ondansetro [place] 8 mg 8 mg n 8 mg da disintegrat disintegrat disintegra [facility] ing tablet ing tablet ting al DISSOLVE 1 DISSOLVE 1 tablet H ealth TABLET IN TABLET IN DISSOLVE 1 Outreac MOUTH ONCE MOUTH ONCE TABLET IN h DAILY DAILY MOUTH ONCE P rogram NEEDED NEEDED DAILY NEEDED sertraline sertraline No sertraline [place] 50 mg 50 mg 50 mg da tablet TAKE tablet TAKE tablet [facility] 1 TABLET BY 1 TABLET BY TAKE 1 al MOUTH ONCE MOUTH ONCE TABLET BY Health DAILY IN DAILY IN MOUTH ONCE O utreac THE MORNING THE MORNING DAILY IN h THE Program MORNING tramadol 50 tramadol 50 No tramadol [place] mg tablet mg tablet 50 mg da TAKE 1 TAKE 1 tablet [facility] TABLET BY TABLET BY TAKE 1 al MOUTH TWICE MOUTH TWICE TABLET BY Health DAILY FOR DAILY FOR MOUTH Outr eac 27 DAYS TWICE h DAILY FOR Program 27 Vital Signs Vital Name Observation Time Observation Value Comments Source Systolic blood 2021-11-27 16:12:00 100 mm[Hg] [facility] Medicine Diastolic blood 2021-11-27 16:12:00 64 mm[Hg] [facility] Medicine Heart rate 2021-11-27 16:12:00 85 /min SPO2 96 [facility] Body temperature 2021-11-27 16:12:00 36.56 Sole [facility] Body height 2021-11-27 16:12:00 167.6 cm [facility] Body weight 2021-11-27 16:12:00 86.093 kg [facility] BMI 2021-11-27 16:12:00 30.63 kg/m2 [facility] HEIGHT 2021-11-23 10:24:00 167.6 cm WEIGHT 2021-11-23 10:24:00 82.6 kg HEIGHT 2021-11-19 11:36:00 167.6 cm WEIGHT 2021-11-19 11:36:00 86.183 kg BP Diastolic 2021-09-28 00:00:00 87 mm[Hg] [facility] [facility] BP Systolic 2021-09-28 00:00:00 133 mm[Hg] [facility] Body Weight 2021-09-28 00:00:00 187.8 [lb_av] [facility] [facility] HEIGHT 2021-09-26 11:14:00 167.6 cm WEIGHT 2021-09-26 11:14:00 86.183 kg Procedures This patient has no known procedures. Plan of Care Planned Activity Planned Date Details Comments Source Future Scheduled 2021-11-27 COVID-19 Vaccine (1) [facility] 14:02:00 [code = COVID-19 Vaccine Med icine (1)] Future Scheduled 2021-11-27 TETANUS SHOT (ADULT) [facility] 14:02:00 [code = TETANUS SHOT Medicin e (ADULT)] Future Scheduled 2021-11-27 BMI FOLLOW UP PLAN [code [facility] 14:02:00 = BMI FOLLOW UP PLAN] Medici ne Future Scheduled 2021-11-27 Hepatitis C screening [employer] Test 14:02:00 (procedure) [code = Medicine [id number]] Future Scheduled 2021-11-27 Human immunodeficiency B [facility] Test 14:02:00 virus screening Medicine (procedure) [code = 666907134] Future Scheduled 2021-11-27 FLU VACCINE > 6 MONTHS B [facility] Test 14:02:00 [code = FLU VACCINE > 6 Medi cine MONTHS] Future Appointment 2021-12-07 Chris Cervantes, [address] [facility] justina 09[facility]45:00 [facility] [id number] Out[facility] Progr am Encounters Start End Encounter Admission Attending Care Care Encounter Source Date/Time Date/Time Type Type Clinicians Facility Department ID 2021-08-12 [facility] [id number] Common 14:38:55 Renetta [facility] 2021-08-12 [facility] [id number] Common 14:11:37 Renetta [facility] 2021-11-27 2021-11-27 [facility] [id number] [place] [address] 11:00:00 12:17:32 Visit Elizabeth Browning [id number] Co danielle [id number] of [id number] [facility] leigh 510 e 2021-11-23 2021-11-23 Outpatient EL LAVINIA ADAMA [facility] Surgery [id number] SLE 09:54:00 20:00:00 2021-11-23 2021-11-23 Outpatient [facility] [id number] 04:[facility] 04:48:00 N [id number] da [facility] Outre h Program 2021-11-19 2021-11-19 Outpatient [facility] [id number] SLE 11:39:44 23:59:00 2021-11-18 2021-11-18 Outpatient Goldfarb_D U U [id number] [place] 02:57:00 02:57:00 [id number] [facility] 2021-11-10 2021-11-10 Outpatient [place]ICHARD [place] [id number] [place] 01:59:00 01:59:00 N [id number] [facility] 2021-11-10 2021-11-10 Andrea DOMINGUEZ [place] - [id number] M [place] 00:00:00 00:00:00 Susana Fierro da PSYD: 1700 [facility] [address], [facility] [id number] h , Ph. Program (979) --20072021-11-04 2021-11-04 Outpatient ESTRELLA, [facility] [id number] [facility] 11:34:49 11:34:49 MARIANO guerreroe of Medicin e 2021-10-27 2021-10-27 [facility] [id number] [facility] 10:00:28 10:12:48 Colleg e of Medicin e 2021-10-27 2021-10-27 Outpatient SAGLIME[facility] 117 [place] 06:07:00 06:07:00 N [id number] [facility] 2021-10-27 2021-10-27 Outpatient DESTINILIME[facility] 117 [place] 06:07:00 06:07:00 N [id number] [facility] 2021-10-27 2021-10-27 Andrea DOMINGUEZ [place] - [id number] M [place] 00:00:00 00:00:00 Susana Fierro da PSYD: 1700 [facility] Epi sc[facility] [address], [facility] Outre [id number] h , Ph. Program (682) -20072021-10-09 2021-10-09 Outpatient [facility] 117 [place] 02:44:00 02:44:00 N [id number] [facility] 2021-10-06 2021-10-06 Outpatient LAVN[facility]A [facility] [id number] [facility] 14:49:21 16:24:28 Colleg e of Medicin e 2021-10-05 2021-10-05 Outpatient SAGLIME_QUENTIN MEHOP MEHOP 117 [id number] [place] 06:21:00 06:21:00 N [id number] [facility] 2021-10-05 2021-10-05 Outpatient SAGLIME_QUENTIN MEHOP MEHOP 117 [id number] [place] 06:21:00 06:21:00 N [id number] [facility] 2021-09-28 2021-09-28 Outpatient SAGLIME_QUENTIN ME[facility] MEHOP 117 [id number] [place] 12:21:00 12:21:00 N 61080 [facility] 2021-09-28 2021-09-28 Outpatient SAGLIME_QUENTIN MEHOP MEHOP 117 - [place] 12:21:00 12:21:00 N [id number] [facility] 2021-09-28 2021-09-28 Chris DOMINGUEZ [place] - [id number] M [place] 00:00:00 00:00:00 Scooter Cervantes MD: Muslim Epi scop 1700 HOP [facility] [address] [facility] , Ph. (509) -20072021-09-26 2021-09-26 Emergency ER [facility] Emergency [id number] [facility] 11:09:00 13:32:00 CHRIS 2021-09-15 2021-09-15 Outpatient SAGLIME_QUENTIN ORHOP ORHOP 117 - [place] 02:05:00 02:05:00 N [facility] 2021-09-15 2021-09-15 Andrea DOMINGUEZ [place] - [id number] M [place] 00:00:00 00:00:00 Susana Fierro PSYD: 1700 Muslim Epi scop Hart [facility] [id number] h , Ph. Program (97) --20072021-09-09 2021-09-09 Outpatient Goldfarb[facility]D [facility] [id number] [place] 04:22:00 04:22:00 [facility] 2021-09-07 2021-09-07 Outpatient [facility]INILIME[facility] 117 [place] 02:12:00 02:12:00 N [facility] 2021-09-07 2021-09-07 Outpatient [facility] 117 [place] 02:12:00 02:12:00 N [facility] 2021-09-07 2021-09-07 Andrea Pitt [facility] [place] - [id number] M [place] 00:00:00 00:00:00 Susana Fierro da PSYD: 1700 Muslim Epi sc[facility] [id number] h , Ph. Program (349) 245--20072021-09-07 2021-09-07 Outpatient BRONSON, [facility] [id number] [place] 00:00:00 00:00:[address] 2021-09-04 2021-09-04 Outpatient DESTINILIME[facility] 117 [place] 03:37:00 03:37:00 N [id number] [facility] 2021-08-28 2021-08-28 Outpatient Goldfarb_D U [facility] [id number] [place] 10:12:00 10:12:00 [id number] [facility] 2021-08-27 2021-08-27 Outpatient Goldfarb_D U [facility] [id number] [place] 03:33:00 03:33:00 [facility] 2021-08-27 2021-08-27 Outpatient Ruy, [facility] U [id number] 00:00:00 00:00:00 Bakari [place] [id number] 2021-08-25 2021-08-25 Outpatient Goldfarb_D U [facility] [id number] [place] 12:54:00 12:54:00 [facility] 2021-08-24 2021-08-24 Outpatient SAGLIME_JOH MEHOP MEHOP 117 [id number] [place] 01:53:00 01:53:00 N [facility] 2021-08-24 2021-08-24 Andrea DOMINGUEZ [place] - [id number] M [place] 00:00:00 00:00:00 Susana Fierro da PSYD: 1700 [facility] Epi sc[facility] Outre [id number] h , Ph. Program (735) --20072021-08-20 2021-08-20 [facility] [id number] [place] 12:26:00 12:26:00 [facility] 2021-08-10 2021-08-10 Outpatient SAGLIME_JOH MEHOP MEHOP 117 [id number] [place] 07:48:00 07:48:00 N [facility] 2021-08-10 2021-08-10 Outpatient SAGLIME_JOH MEHOP MEHOP 117 [id number] [place] 01:24:00 01:24:00 N [facility] 2021-08-05 2021-08-05 Outpatient SAGLIME_JOH MEHOP MEHOP 117 [id number] [place] 10:48:00 10:48:00 N [facility] 2021-08-03 2021-08-03 Outpatient SAGLIME_JOH MEHOP MEHOP 117 [id number] [place] 12:20:00 12:20:00 N [facility] 2021-08-03 2021-08-03 Outpatient SAGLIME_JOH MEHOP MEHOP 117 [id number] [place] 12:20:00 12:20:00 N [facility] 2021-08-03 2021-08-03 Andrea DOMINGUEZ [place] - [id number] M [place] 00:00:00 00:00:00 Amado Fierrorda da PSYD: 1700 Muslim Epi scop [facility] [id number] h , Ph. Program (979) -20072021-07-27 2021-07-27 Outpatient [facility]ARD [facility] [id number] [place] 10:59:00 10:59:00 N [id number] [facility] 2021-07-27 2021-07-27 Andrea [facility] - [id number] M [place] 00:00:00 00:00:00 Amado Fierrorda da PSYD: 1700 Muslim Epi scop [facility] [id number] h , Ph. Program (979) 2021-07-26 2021-07-26 Outpatient [facility] 117 - [place] 05:57:00 05:57:00 N [facility] 2021-07-24 2021-07-24 ambulatory STLMLC STLMLC [id number] Common 00:00:00 00:00:00 [facility] 2021-07-22 2021-07-22 ambulatory STLMLC STLMLC [id number] Common 00:00:00 00:00:00 [facility] 2021-07-16 2021-07-16 Outpatient [facility] [id number] [place] 04:19:00 04:19:00 N [id number] [facility] 2021-07-09 2021-07-09 ambulatory STLMLC STLMLC [id number] Common 00:00:00 00:00:00 [facility] 2021-07-08 2021-07-08 Outpatient Zuniga_S MMG MMG [id number] [place] 02:09:00 02:09:00 1222 [facility] 2021-07-06 2021-07-06 ambulatory STLMLC STLMLC [id number] Common 00:00:00 00:00:00 [facility] 2021-06-30 2021-06-30 Outpatient SAGLIME_QUENTIN MEHOP MEHOP 117 [id number] [place] 04:09:00 04:09:00 N [id number] [facility] 2021-06-30 2021-06-30 Outpatient SAGLIME_QUENTIN MEHOP MEHOP 117 [id number] [place] 04:09:00 04:09:00 N [id number] [facility] 2021-06-30 2021-06-30 Outpatient SAGLIME_JOH MEHOP MEHOP 117 [id number] [place] 02:04:00 02:04:00 N [id number] [facility] 2021-06-30 2021-06-30 Andrea DOMINGUEZ [place] - [id number] M [place] 00:00:00 00:00:00 Susana Fierro da PSYD: 1700 [facility] [address] h , Ph. Program (957) -20072021-06-22 2021-06-22 ambulatory STLMLC STLMLC [id number] Common 00:00:00 00:00:00 [facility] 2021-06-08 2021-06-08 Outpatient SAGLIME_QUENTIN MEHOP MEHOP 117 [id number] [place] 04:51:00 04:51:00 N [id number] [facility] 2021-06-08 2021-06-08 Outpatient SAGLIME_QUENTIN MEHOP MEHOP 117 [id number] [place] 04:24:00 04:24:00 N [id number] [facility] 2021-06-08 2021-06-08 Andrea DOMINGUEZ [place] - [id number] M [place] 00:00:00 00:00:00 Susana Fierro da PSYD: 1700 [facility] Epi sc[facility] [id number] h , Ph. Program (198) --20072021-05-27 2021-05-[address] [facility] [id number] Common 00:00:00 00:00:00 [facility] 2021-05-26 2021-05-26 Outpatient MARYLU DOMINGUEZ [facility] 117 [id number] [facility] 11:02:00 11:02:00 N 15631 da [facility] Program Results This patient has no known results.
[2021-12-02 12:26] LABS: Urine Blood 3+ (Negative); Urine Glucose Negative (Negative); Urine Protein Trace (Negative)
[2021-12-02 12:49] LABS: Urine Bacteria NONE SEEN /HPF (NONE SEEN); Urine RBC >50 /HPF (NONE SEEN)
[2021-12-02] MEDS ORDERED: NA CHLORIDE 0.9% 1,000 ML ONE (15:58)
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
[2021-12-02 19:05] VITALS: BP 144/81; TEMP 98; O2SAT 95
== END 2021-12-02 18:52 | disposition home or self-care (01) ==
LOC: ER 11:25
DX: R30.0 Dysuria (principal); R31.9 Hematuria, unspecified; S31.30XA Unspecified open wound of scrotum and testes, initial encounter; G89.29 Other chronic pain
CPT/HCPCS: 87088; 87086; 87077; 87186; 99282; J7030; 81003; 81015

== ENCOUNTER 2022-04-08 16:18 | Emergency (ER) | payer BC ==
--- OUTSIDE RECORDS SUMMARY | 2022-04-08 16:23 | XMS REPORT | Continuity of Care Document ---
:1995 Author Organization [facility] t Address [address] [place] [address] [address]. [address] [place] [address] Care Team Providers Name Role Phone SOBEIDA FONTANEZ Primary Care Physician Unavailable Renetta Argueta Attending Clinician Unavailable KATE, KARAN Attending Clinician Unavailable Lavinia AMANDA, Karan Attending Clinician Gissell Hudson MD Attending Clinician Be Urias CRNA Attending Clinician [phone] YELITZA HATCH Attending Clinician Unavailable Yelitza Hatch MD Attending Clinician YELITZA HATCH Attending Clinician Unavailable Lavinia AMANDA, Karan Attending Clinician LAVINIA KARAN Attending Clinician Unavailable MARCO ANTONIO Attending Clinician Unavailable Mariano Contreras MD Attending Clinician Elizabeth Galan Attending Clinician Chris Hernandez MD Attending Clinician Gee Borrego MD Attending Clinician Benigno Attending Clinician Unavailable MARIANO CONTRERAS Attending Clinician Unavailable Nannette Randle Attending Clinician [phone]- [phone] CHRIS ORNELAS Attending Clinician Unavailable Jennifer AMANDA, Chris Espitia Attending Clinician [phone] Saida AMANDA, Michael Tapia Attending Clinician Bakari Redmond Attending Clinician [phone] Zuniga_S Attending Clinician Unavailable KARAN KATE Admitting Clinician Unavailable YELITZA HATCH Admitting Clinician Unavailable MARCO ANTONIO Admitting Clinician Unavailable Benigno Admitting Clinician Unavailable Zuniga_S Admitting Clinician Unavailable Payers Payer Name Policy Type Policy Number Effective Date Expiration Date [place] BC[employer] ADV HMO [id number] 2021 EXCHANGE 00:00:00 [facility] [id number] 2021 O-MARKETPLACE - 00:00:00 [place] [id number] 2020 ADVANTAGE (HMO) 00:00:00 [facility] [id number] 2020 HEALTH 00:00:00 Problems Condition Condition Condition Status Onset Resolution Last Treating Co mments Source Name Details Category Date Date Treatment Clinician Date Rectal Rectal Disease Active [facility] Neurogenic Neurogenic Disease Active [facility] bladder bladder 5-31 [facility] 00:[facility]: of 00 Medicin e Major Major Problem Active 2020-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 SARS-CoV-2 (event) 00:00:00 11:27:00 [facility] l Center Alcohol intake 2022-03-25 2022-03-25 Ex-drinker [facility] 00[facility]00 00:00:00 (finding) [facility] Center Cigarette 2021-12-09 2021-12-09 [facility] pack-years 00:00:00 00:00:00 of Medicine Tobacco use and 2021-11-19 2021-11-[address] [facility] exposure 00[facility]00:00 00:00:00 Medical Center Sex Assigned At [address] [facility] 00:00[facility]00 [facility]00 [facility] Center Smoking Status Start Date Stop Date Source Tobacco smoking consumption unknown [facility] Never smoker [facility] Ordered Filled Start Stop Current Ordering Indication Dosage Frequency Signature Comments Components Source Medication Medication Date Date Medication? Clinician (SIG) Name Name gabapentin Yes 400mg [id number] Take [address] [facility] (NEURONTIN) 9-08 [id number] mg by L [facility] 400 MG 14:44: 3D mouth 3 Medical capsule 07 (three) Center times daily. methocarbam Yes 750mg Take [address] oL 9-08 mg by [facility] (ROBAXIN) 14:44: mouth 3 Medic al 750 MG 07 (three) Center tablet times daily as needed. ondansetron Yes Take by [facility] (ZOFRAN) 8 9-08 [facility] MG tablet 14:44: every 8 Medic al 07 (eight) Center hours as needed for Nausea. traMADoL Yes 50mg Take [address] [facility] (ULTRAM) 50 9-08 by mouth [facility] mg tablet 14:44: every 6 Medic al 07 (six) Center hours as needed for Pain. HYDROcodone 2021-0 Yes 1{tbl} Take [address] -acetaminop 9-08 tablet by Tru es hen (NORCO 14:44: mouth Medica l 10-325) 07 every 6 Center 10-325 mg (six) per tablet hours as needed for Pain. ondansetron 0 Yes 8mg Take [address] (ZOFRAN-ODT 9-08 by mouth 2 [facility] ) 8 MG 14:44: (two) Medical disintegrat 07 times Center ing tablet daily as needed for Nausea. ondansetron 2021-0 2021- No Take by [facility] (ZOFRAN) 8 8 08-31 mouth. Colleg e mg tablet 08:24: 00:00 of 07 :00 Medicin e methocarbam 2021-0 2021- No 750mg Take 750 [place] ol 03-17 08-31 mg by [facility] (ROBAXIN) 08:24: 00:00 mouth. of 750 MG 01 :00 Medicin tablet e doxepin 2021-0 2021- No 50mg QD Take [address] [facility] (SINEquan) 19 08-19 by mouth [facility] 50 MG 13:35: 00:00 nightly. Medical capsule 33 :00 Center ondansetron 2021-0 Yes Take by [facility] [facility] (ZOFRAN) 8 7-12 mouth. College mg tablet 09:16: of 47 Medicin e ondansetron 2021-0 Yes Take by [facility] (ZOFRAN) 8 6-15 mouth. College mg tablet 11:21: of 13 Medicin e methocarbam 2021-0 Yes 750mg Take 750 [facility] 5-31 mg by [place] [facility] (ROBAXIN) 10:51: mouth. of 750 MG 29 Medicin tablet e ondansetron 2-0 Yes Take by [facility] (ZOFRAN) 8 5-31 mouth. College mg tablet 10:51: of 29 Medicin e methocarbam 2-0 Yes 750mg Take 750 [facility] 5-31 mg by [place] [facility] (ROBAXIN) 10:51: mouth. of 750 MG 29 Medicin tablet e methocarbam 2-0 Yes 750mg Take 750 [facility] 5-31 mg by [place] [facility] (ROBAXIN) 10:51: mouth. of 750 MG 29 Medicin tablet e methocarbam 2-0 Yes 750mg Take 750 [facility] 5-31 mg by [place] [facility] (ROBAXIN) 10:51: mouth. of 750 MG 29 Medicin tablet e ondansetron 2-0 Yes Take by [facility] [facility] (ZOFRAN) 8 5-31 mouth. College mg tablet 10:51: of 29 Medicin e ciprofloxac 2-0 2021- No 500mg Take 1 [facility] (CIPRO) 12-1522 Tablet by [facility] 500 MG 00:00: 04:59 mouth two of tablet 00 :00 times Medicin daily for e 21 days. metronidazo 2021-0 2021- No 500mg Take 1 [facility] (FLAGYL) 12-15 Tablet by Co llege 500 MG 00:00: 04:59 mouth 3 of tablet 00 :00 times Medicin daily for e 21 days. ciprofloxac 2021-0 2021- No 500mg Take 1 [facility] (CIPRO) 12-15 Tablet by [facility] lege 500 MG 00:00: 04:59 mouth two of tablet 00 :00 times Medicin daily for e 21 days. metronidazo 2021-0 2021- No 500mg Take 1 [facility] (FLAGYL) 12-15 Tablet by Co llege 500 MG 00:00: 04:59 mouth 3 of tablet 00 :00 times Medicin daily for e 21 days. ciprofloxac 2021-0 2021- No 500mg Take 1 [facility] (CIPRO) 12-15 Tablet by Col lege 500 MG 00:00: 00:00 mouth two of tablet 00 :00 times Medicin daily for e 14 days. metronidazo 2021-0 2021- No 500mg Take 1 [facility] (FLAGYL) 12-15 Tablet by Co llege 500 MG 00:00: 00:00 mouth 3 of tablet 00 :00 times Medicin daily for e 14 days. hydrocodone 0 Yes [facility] -acetaminop 5-16 College hen (NORCO) 00:00: of 10-325 MG 00 Medicin per tablet e hydrocodone 0 Yes [place] -acetaminop 5-16 College hen (NORCO) 00:00: of 10-325 MG 00 Medicin per tablet e hydrocodone 2021-0 Yes [place] -acetaminop 5-16 College hen (NORCO) 00:00: of 10-325 MG 00 Medicin per tablet e hydrocodone 0 Yes [place] -acetaminop 5-16 College hen (NORCO) 00:00: of 10-325 MG 00 Medicin per tablet e hydrocodone 2021-0 Yes [place] -acetaminop 5-16 College hen (NORCO) 00:00: of 10-325 MG 00 Medicin per tablet e Tamsulosin 2021-0 2- No .4mg Take 0.4 [facility] HCl 0.4 MG 5-13 05-28 mg by College CAPS 00:00: 04:59 mouth of 00 :00 daily for Medicin 14 days. e Tamsulosin 2-0 2- No .4mg Take 0.4 [facility] HCl 0.4 MG 5-13 05-28 mg by College CAPS 00:00: 04:59 mouth of 00 :00 daily for Medicin 14 days. e Tamsulosin 2021-0 2- No .4mg Take 0.4 [facility] HCl 0.4 MG 5-13 05-28 mg by [place] [facility] CAPS 00:00: 04:59 mouth of 00 :00 daily for Medicin 14 days. e oxycodone 2021-0 Yes TAKE 1 [facility] (ROXICODONE 5-10 TABLET BY Col lege ) 5 MG 00:00: MOUTH of immediate 00 EVERY 6 Medicin release HOURS e tablet NEEDED FOR POST OP PAIN (MAX OF 20MG PER DAY) oxyCODONE 2021-0 Yes 5mg Take [address] [facility] (ROXICODONE 5-10 tablet (5 Tru es ) 5 MG 00:00: mg total) Medica l immediate 00 by mouth Center release every 6 tablet (six) hours as needed for Pain (postop pain) for up to 35 doses. Max Daily Amount: 20 mg clindamycin 2021-0 2021- No 300mg Take 1 [facility] (CLEOCIN) 11-24- capsule by Col lege 300 MG 00:00: 04:59 mouth 3 of capsule 00 :00 times Medicin daily for e 21 days. clindamycin 2-0 2- No 300mg Take 1 [facility] (CLEOCIN) 5-04 22- capsule by Col [facility]ge 300 MG 00:00: 04:59 mouth 3 of capsule 00 :00 times Medicin daily for e 21 days. clindamycin 2-0 2- No 300mg Take 1 [facility] (CLEOCIN) 5-04 22- capsule by Col [facility]ge 300 MG 00:00: 04:59 mouth 3 of capsule 00 :00 times Medicin daily for e 21 days. clindamycin 2-0 2022- No 300mg Take 1 [facility] (CLEOCIN) 11-24 capsule by [facility] 300 MG 00:00: 04:59 mouth 3 of capsule 00 :00 times Medicin daily for e 21 days. oxycodone 2021- No TAKE 1 [facility] (ROXICODONE 5-10 05-25 TABLET BY Co llege ) 5 MG 00:00: 00:00 MOUTH of immediate 00 :00 EVERY 6 Medicin release HOURS e tablet NEEDED FOR POST OP PAIN (MAX OF 20MG PER DAY) oxycodone 2021- No TAKE 1 [facility] (ROXICODONE 5-10 05-25 TABLET BY Co llege ) 5 MG 00:00: 00:00 MOUTH of immediate 00 :00 EVERY 6 Medicin release HOURS e tablet NEEDED FOR POST OP PAIN (MAX OF 20MG PER DAY) HYDROcodone 2021- No 1{tbl} Take [address] -acetaminop 11-23 tablet by [facility] (NORCO 15:09: 00:00 mouth Medic al 10-325) 16 :00 every 6 Center 10-325 mg (six) per tablet hours as needed for Pain. traMADoL 50mg Take [address] (ULTRAM) 50 11-23 by mouth Tru es mg tablet 15:09: 00:00 every 6 Medi [place] 16 :00 (six) Center hours as needed for Pain. tamsulosin No .4mg QD Take [address] [facility] (FLOMAX) 11-23 capsule [facility] 0.4 mg Cap 00:00: 00:00 (0.4 mg Med ical 24 hr 00 :00 total) by Center capsule mouth daily. ciprofloxac 2021- No 500mg Q.5D Take [address] in HCl 11-23 tablet [facility] (CIPRO) 500 00:00: 23:59 (500 mg Me dical MG tablet 00 :00 total) by Cente r mouth 2 (two) times daily for 21 days. metroNIDAZO 2021- No 500mg [id number] Take [address] [facility] [address] [facility] (FLAGYL) 11-23 [id number] tablet [facility] 500 MG 00:00: 23:59 3D (500 mg Medical tablet 00 :00 total) by Center mouth 3 (three) times daily for 21 days. Tamsulosin 2021- No .4mg Take 0.4 [facility] HCl 0.4 MG 11-23 05-13 mg by [facility] CAPS 00:00: 00:00 mouth. of 00 :00 Medicin e ondansetron Yes DISSOLVE 1 [facility] (ZOFRAN-ODT 3-21 TABLET ON Col lege ) 8 mg 00:00: TOP OF of disintegrat 00 TONGUE Medici n ing tablet ONCE DAILY e NEEDED tramadol Yes TAKE 1 [facility] (ULTRAM) 50 3-21 TABLET BY Col lege MG tablet 00:00: MOUTH of 00 TWICE Medicin DAILY FOR e 29 DAYS ondansetron Yes DISSOLVE 1 [place] (ZOFRAN-ODT 3-21 TABLET ON Col lege ) 8 mg 00:00: TOP OF of disintegrat 00 TONGUE Medici n ing tablet ONCE DAILY e NEEDED tramadol Yes TAKE 1 [facility] (ULTRAM) 50 3-21 TABLET BY Col lege MG tablet 00:00: MOUTH of 00 TWICE Medicin DAILY FOR e 29 DAYS ondansetron Yes DISSOLVE 1 [place] (ZOFRAN-ODT 3-21 TABLET ON Col lege ) 8 mg 00:00: TOP OF of disintegrat 00 TONGUE Medici n ing tablet ONCE DAILY e NEEDED hydrocodone Yes TAKE 1 [facility] -acetaminop 3-21 TABLET BY Col lege hen (NORCO) 00:00: MOUTH 4 of 7.5-325 MG 00 TIMES Medicin per tablet DAILY FOR e 29 DAYS tramadol 0 Yes TAKE 1 [place] (ULTRAM) 50 3-21 TABLET BY Col lege MG tablet 00:00: MOUTH of 00 TWICE Medicin DAILY FOR e 29 DAYS ondansetron Yes DISSOLVE 1 [facility] (ZOFRAN-ODT 3-21 TABLET ON Col lege ) 8 mg 00:00: TOP OF of disintegrat 00 TONGUE Medici n ing tablet ONCE DAILY e NEEDED ondansetron Yes DISSOLVE 1 [facility] (ZOFRAN-ODT 3-21 TABLET ON Col lege ) 8 mg 00:00: TOP OF of disintegrat 00 TONGUE Medici n ing tablet ONCE DAILY e NEEDED tramadol Yes TAKE 1 [facility] (ULTRAM) 50 3-21 TABLET BY Col lege MG tablet 00:00: MOUTH of 00 TWICE Medicin DAILY FOR e 29 DAYS tramadol 0 Yes TAKE 1 [facility] (ULTRAM) 50 3-21 TABLET BY Col lege MG tablet 00:00: MOUTH of 00 TWICE Medicin DAILY FOR e 29 DAYS ondansetron Yes DISSOLVE 1 [facility] (ZOFRAN-ODT 3-21 TABLET ON Col lege ) 8 mg 00:00: TOP OF of disintegrat 00 TONGUE Medici n ing tablet ONCE DAILY e NEEDED tramadol Yes TAKE 1 [facility] (ULTRAM) 50 3-21 TABLET BY Col lege MG tablet 00:00: MOUTH of 00 TWICE Medicin DAILY FOR e 29 DAYS ondansetron Yes DISSOLVE 1 [place] (ZOFRAN-ODT 3-21 TABLET ON Col lege ) 8 mg 00:00: TOP OF of disintegrat 00 TONGUE Medici n ing tablet ONCE DAILY e NEEDED tramadol Yes TAKE 1 [place] (ULTRAM) 50 3-21 TABLET BY Col lege MG tablet 00:00: MOUTH of 00 TWICE Medicin DAILY FOR e 29 DAYS ondansetron Yes DISSOLVE 1 [facility] (ZOFRAN-ODT 3-21 TABLET ON Col lege ) 8 mg 00:00: TOP OF of disintegrat 00 TONGUE Medici n ing tablet ONCE DAILY e NEEDED tramadol Yes TAKE 1 [facility] (ULTRAM) 50 3-21 TABLET BY Col lege MG tablet 00:00: MOUTH of 00 TWICE Medicin DAILY FOR e 29 DAYS hydrocodone 2021-0 2021- No TAKE 1 [facility] -acetaminop 3-21 05-25 TABLET BY Co danielle catherine ([employer] [facility] [employer]) 00:00: 00:00 MOUTH 4 of 7.5-325 MG 00 :00 TIMES Medicin per tablet DAILY FOR e 29 DAYS hydrocodone 2021-0 2021- No TAKE 1 [facility] [facility] -acetaminop 3-21 05-25 TABLET BY Co danielle catherine ([facility] [facility]) 00:00: 00:00 MOUTH 4 of 7.5-325 MG 00 :00 TIMES Medicin per tablet DAILY FOR e 29 DAYS hydrocodone 2021- No TAKE 1 [facility] [facility] -acetaminop 3-21 05-25 TABLET BY Jessica catherine ([facility]) 00:00: 00:00 MOUTH 4 of 7.5-325 MG 00 :00 TIMES Medicin per tablet DAILY FOR e 29 DAYS sertraline Yes TAKE 1 [facility] (ZOLOFT) 50 3-14 TABLET BY Col lege MG tablet 00:00: MOUTH ONCE of 00 DAILY IN Medicin THE e MORNING sertraline Yes TAKE 1 [facility] (ZOLOFT) 50 3-14 TABLET BY Col lege MG tablet 00:00: MOUTH ONCE of 00 DAILY IN Medicin THE e MORNING sertraline Yes TAKE 1 [facility] (ZOLOFT) 50 3-14 TABLET BY Col lege MG tablet 00:00: MOUTH ONCE of 00 DAILY IN Medicin THE e MORNING sertraline Yes TAKE 1 [facility] (ZOLOFT) 50 3-14 TABLET BY Col lege MG tablet 00:00: MOUTH ONCE of 00 DAILY IN Medicin THE e MORNING sertraline Yes TAKE 1 [facility] (ZOLOFT) 50 3-14 TABLET BY Col lege MG tablet 00:00: MOUTH ONCE of 00 DAILY IN Medicin THE e MORNING sertraline Yes TAKE 1 [facility] (ZOLOFT) 50 3-14 TABLET BY Col lege MG tablet 00:00: MOUTH ONCE of 00 DAILY IN Medicin THE e MORNING sertraline Yes TAKE 1 [facility] (ZOLOFT) 50 3-14 TABLET BY Col lege MG tablet 00:00: MOUTH ONCE of 00 DAILY IN Medicin THE e MORNING sertraline Yes TAKE 1 [facility] (ZOLOFT) 50 3-14 TABLET BY Col lege MG tablet 00:00: MOUTH ONCE of 00 DAILY IN Medicin THE e MORNING doxepin Yes [place] (SINEQUAN) 3-07 College 50 MG 00:00: of capsule 00 Medicin e doxepin Yes [place] (SINEQUAN) 3-07 College 50 MG 00:00: of capsule 00 Medicin e doxepin Yes [facility] (SINEQUAN) 3-07 College 50 MG 00:00: of capsule 00 Medicin e doxepin 0 Yes [facility] (SINEQUAN) 3-07 College 50 MG 00:00: of capsule 00 Medicin e doxepin 0 Yes [facility] (SINEQUAN) 3-07 College 50 MG 00:00: of capsule 00 Medicin e doxepin 0 Yes [facility] (SINEQUAN) 3-07 College 50 MG 00:00: of capsule 00 Medicin e doxepin 0 Yes [facility] (SINEQUAN) 3-07 College 50 MG 00:00: of capsule 00 Medicin e doxepin 0 Yes [facility] (SINEQUAN) 3-07 [facility] 50 MG 00:00: of capsule 00 Medicin e gabapentin 0 Yes gabapentin [facility] (NEURONTIN) 1-28 400 mg Colleg e 400 MG 00:00: capsule of capsule 00 TAKE 1 Medicin CAPSULE BY e MOUTH THREE TIMES DAILY FOR 28 DAYS methocarbam Yes methocarba [place] ol 1-28 mol 750 mg [facility] (ROBAXIN) 00:00: tablet of 750 MG 00 TAKE 1 Medicin tablet TABLET BY e MOUTH ONCE DAILY FOR 28 DAYS gabapentin 0 Yes gabapentin [facility] (NEURONTIN) 1-28 400 mg Colleg e 400 MG 00:00: capsule of capsule 00 TAKE 1 Medicin CAPSULE BY e MOUTH THREE TIMES DAILY FOR 28 DAYS methocarbam Yes methocarba [place] ol 1-28 mol 750 mg [facility] (ROBAXIN) 00:00: tablet of 750 MG 00 TAKE 1 Medicin tablet TABLET BY e MOUTH ONCE DAILY FOR 28 DAYS gabapentin 0 Yes gabapentin [facility] (NEURONTIN) 1-28 400 mg Colleg e 400 MG 00:00: capsule of capsule 00 TAKE 1 Medicin CAPSULE BY e MOUTH THREE TIMES DAILY FOR 28 DAYS gabapentin 0 Yes gabapentin [facility] (NEURONTIN) 1-28 400 mg Colleg e 400 MG 00:00: capsule of capsule 00 TAKE 1 Medicin CAPSULE BY e MOUTH THREE TIMES DAILY FOR 28 DAYS methocarbam Yes methocarba [place] ol 1-28 mol 750 mg [facility] (ROBAXIN) 00:00: tablet of 750 MG 00 TAKE 1 Medicin tablet TABLET BY e MOUTH ONCE DAILY FOR 28 DAYS methocarbam Yes methocarba [facility] ol 1-28 mol 750 mg [facility] (ROBAXIN) 00:00: tablet of 750 MG 00 TAKE 1 Medicin tablet TABLET BY e MOUTH ONCE DAILY FOR 28 DAYS gabapentin Yes gabapentin [facility] (NEURONTIN) 1-28 400 mg Colleg e 400 MG 00:00: capsule of capsule 00 TAKE 1 Medicin CAPSULE BY e MOUTH THREE TIMES DAILY FOR 28 DAYS methocarbam Yes methocarba [place] ol 1-28 mol 750 mg [facility] (ROBAXIN) 00:00: tablet of 750 MG 00 TAKE 1 Medicin tablet TABLET BY e MOUTH ONCE DAILY FOR 28 DAYS gabapentin Yes gabapentin [facility] (NEURONTIN) 1-28 400 mg Colleg e 400 MG 00:00: capsule of capsule 00 TAKE 1 Medicin CAPSULE BY e MOUTH THREE TIMES DAILY FOR 28 DAYS methocarbam Yes methocarba [facility] ol 1-28 mol 750 mg [facility] (ROBAXIN) 00:00: tablet of 750 MG 00 TAKE 1 Medicin tablet TABLET BY e MOUTH ONCE DAILY FOR 28 DAYS gabapentin Yes gabapentin [facility] (NEURONTIN) 1-28 400 mg Colleg e 400 MG 00:00: capsule of capsule 00 TAKE 1 Medicin CAPSULE BY e MOUTH THREE TIMES DAILY FOR 28 DAYS methocarbam Yes methocarba [facility] ol 1-28 mol 750 mg [facility] (ROBAXIN) 00:00: tablet of 750 MG 00 TAKE 1 Medicin tablet TABLET BY e MOUTH ONCE DAILY FOR 28 DAYS gabapentin Yes gabapentin [facility] (NEURONTIN) 1-28 400 mg Colleg e 400 MG 00:00: capsule of capsule 00 TAKE 1 Medicin CAPSULE BY e MOUTH THREE TIMES DAILY FOR 28 DAYS methocarbam Yes methocarba [place] ol 1-28 mol 750 mg [facility] (ROBAXIN) 00:00: tablet of 750 MG 00 TAKE 1 Medicin tablet TABLET BY e MOUTH ONCE DAILY FOR 28 DAYS ciprofloxac ciprofloxac No ciprofloxa [place] in 500 mg in 500 mg leigh 500 mg da tablet TAKE tablet TAKE tablet [facility] 1 TABLET BY 1 TABLET BY TAKE 1 al MOUTH TWICE MOUTH TWICE TABLET BY [facility] DAILY FOR DAILY FOR MOUTH Outr eac 14 DAYS 14 DAYS TWICE h DAILY FOR Program 14 DAYS clindamycin clindamycin No clindamyci [place] HCl 300 mg HCl 300 mg n HCl 300 da capsule capsule mg capsule [facility] TAKE 1 TAKE 1 TAKE 1 al CAPSULE BY CAPSULE BY CAPSULE BY Health MOUTH THREE MOUTH THREE MOUTH Outreac TIMES DAILY TIMES DAILY THREE h FOR 21 DAYS FOR 21 DAYS TIMES Program DAILY FOR 21 DAYS doxepin 10 doxepin 10 No doxepin 10 [place] mg capsule mg capsule mg capsule da [facility] gabapentin gabapentin No gabapentin [place] 400 mg 400 mg 400 mg da capsule capsule capsule [facility] TAKE 1 TAKE 1 TAKE 1 al CAPSULE BY CAPSULE BY CAPSULE BY Health MOUTH THREE MOUTH THREE MOUTH Outreac TIMES DAILY TIMES DAILY THREE h FOR 28 DAYS FOR 28 DAYS TIMES Program DAILY FOR 28 DAYS hydrocodone hydrocodone No hydrocodon [place] 10 10 e 10 da mg-acetamin mg-acetamin mg-acetami [facility] ophen 325 ophen 325 nophen 325 al mg tablet mg tablet mg tablet Health Outreac h Program hydrocodone hydrocodone No hydrocodon [facility] 7.5 7.5 [...] DAILY FOR MOUTH Outr eac 27 DAYS 27 DAYS TWICE h DAILY FOR Program 27 DAYS metronidazo metronidazo No metronidaz [place] le 500 mg le 500 mg ole 500 mg da tablet TAKE tablet TAKE tablet [facility] 1 TABLET BY 1 TABLET BY TAKE 1 al MOUTH THREE MOUTH THREE TABLET BY Health TIMES DAILY TIMES DAILY MOUTH Outreac FOR 14 DAYS FOR 14 DAYS THREE h TIMES Program DAILY FOR 14 DAYS mirtazapine mirtazapine No 1 Q1D mirtazapin [place] 15 mg 15 mg e 15 mg da tablet Take tablet Take tablet [facility] 1 tablet 1 tablet Take 1 al every day every day tablet Hea [facility] by oral by oral every day Outr eac route at route at by oral h bedtime. bedtime. route at Pro gram bedtime. ondansetron ondansetron No ondansetro [place] 8 mg 8 mg n 8 mg da disintegrat disintegrat disintegra [facility] ing tablet ing tablet ting al DISSOLVE 1 DISSOLVE 1 tablet H ealth TABLET IN TABLET IN DISSOLVE 1 Outreac MOUTH ONCE MOUTH ONCE TABLET IN h DAILY DAILY MOUTH ONCE P rogram NEEDED NEEDED DAILY NEEDED oxycodone 5 oxycodone 5 No oxycodone [facility] mg tablet mg tablet 5 mg da TAKE 1 TAKE 1 tablet [facility] TABLET BY TABLET BY TAKE 1 al MOUTH EVERY MOUTH EVERY TABLET BY [facility] 6 HOURS 6 HOURS MOUTH Ou treac NEEDED FOR NEEDED FOR EVERY 6 h POST OP POST OP HOURS Progr am PAIN (MAX PAIN (MAX NEEDED FOR OF 20MG PER OF 20MG PER POST OP DAY) DAY) PAIN (MAX OF 20MG PER DAY) sertraline sertraline No 1 Q1D sertraline [place] 100 mg 100 mg 100 mg da tablet Take tablet Take tablet [facility] 1 tablet 1 tablet Take 1 al every day every day tablet [facility]a [facility] by oral by oral every day Outr eac route in route in by oral h the the route in Program morning. morning. the morning. tamsulosin tamsulosin No tamsulosin [facility] 0.4 mg 0.4 mg 0.4 mg da capsule capsule capsule [facility] TAKE 1 TAKE 1 TAKE 1 al CAPSULE BY CAPSULE BY CAPSULE BY Health MOUTH ONCE MOUTH ONCE MOUTH ONCE Outreac DAILY DAILY DAILY h Program tramadol 50 tramadol 50 No tramadol [place] mg tablet mg tablet 50 mg da TAKE 1 TAKE 1 tablet [facility] TABLET BY TABLET BY TAKE 1 al MOUTH TWICE MOUTH TWICE TABLET BY [facility] DAILY FOR DAILY FOR MOUTH Outr eac 27 DAYS 27 DAYS TWICE h DAILY FOR Program 27 DAYS Vital Signs Vital Name Observation Time Observation Value Comments Source HEIGHT 2022-03-25 11:18:00 167.6 cm WEIGHT 2022-03-25 11:18:00 70.58 kg HEIGHT 2022-03-01 14:30:00 167.6 cm WEIGHT 2022-03-01 14:30:00 72.576 kg HEIGHT 2022-03-25 11:18:00 167.6 cm WEIGHT 2022-03-25 11:18:00 70.58 kg HEIGHT 2022-03-01 14:30:00 167.6 cm WEIGHT 2022-03-01 14:30:00 72.576 kg Systolic blood 2022-02-16 15:19:00 145 mm[Hg] [facility] pressure Medicine Diastolic blood 2022-02-16 15:19:00 91 mm[Hg] [facility] pressure Medicine Heart rate 2022-02-16 15:19:00 102 /min sp 02 97 [facility] Body temperature 2022-02-16 15:19:00 36.56 [facility] Body height 2022-02-16 15:19:00 170.2 cm [facility] Systolic blood 2022-01-26 14:13:00 113 mm[Hg] [facility] Medicine Diastolic blood 2022-01-26 14:13:00 75 mm[Hg] [facility] Medicine Heart rate 2022-01-26 14:13:00 63 /min sp02 96 [facility] Body temperature 2022-01-26 14:13:00 36.72 [facility] Respiratory rate 2022-01-26 14:13:00 16 /[facility] Body height 2022-01-26 14:13:00 167.6 cm [facility] Body weight 2022-01-26 14:13:[address] [facility] BMI 2022-01-26 14:13:00 30.31 kg[facility]m2 [facility] Systolic blood 2021-12-30 16:17:00 131 mm[Hg] [facility] Medicine Diastolic blood 2021-12-30 16:17:00 88 mm[Hg] [facility] Medicine Heart rate 2021-12-30 16:17:00 80 /min SPO2 95 [facility] Body temperature 2021-12-30 16:17:00 36.94 [facility] Body weight 2021-12-30 16:17:00 [facility]008 [facility] BMI 2021-12-30 16:17:00 29.54 [facility] Systolic blood 2021-12-15 15:50:00 120 mm[facility]Hg] [facility] [facility] Diastolic blood 2021-12-15 15:50:00 78 mm[Hg] [facility] pressure Medicine Heart rate 2021-12-15 15:50:00 76 /min sp02 97 [facility] [place] [facility] Body temperature 2021-12-15 15:50:00 36.61 [facility] Respiratory rate 2021-12-15 15:50:00 18 /[facility] Body height 2021-12-15 15:50:00 167.6 cm [facility] Body weight 2021-12-15 15:50:00 87.544 kg [facility] BMI 2021-12-15 15:50:00 31.15 kg/m2 [facility] Systolic blood 2021-12-09 15:03:00 125 mm[Hg] [facility] Medicine Diastolic blood 2021-12-09 15:03:00 79 mm[Hg] [facility] Medicine Heart rate 2021-12-09 15:03:00 97 /min sp02 96 [facility] Body temperature 2021-12-09 15:03:00 37 [facility] Respiratory rate 2021-12-09 15:03:00 16 /[facility] Body height 2021-12-09 15:03:00 167.6 cm [facility] Body weight 2021-12-09 15:03:00 90.719 kg [facility] BMI 2021-12-09 15:03:00 32.28 kg/m2 [facility] Systolic blood 2021-12-09 16:09:00 111 mm[Hg] [facility] pressure Medicine Diastolic blood 2021-12-09 16:09:00 75 mm[Hg] [facility] pressure Medicine Heart rate 2021-12-09 16:09:00 97 /min [facility] Body height 2021-12-09 16:09:00 167.6 cm [facility] Body weight 2021-12-09 16:09:[address] [facility] BMI 2021-12-09 16:09:00 32.28 kg/m2 [facility] Systolic blood 2021-11-27 16:12:00 100 mm[Hg] [facility] pressure Medicine Diastolic blood 2021-11-27 16:12:00 64 mm[Hg] [facility] Medicine Heart rate 2021-11-27 16:12:00 85 /min SPO2 96 [facility] Body temperature 2021-11-27 16:12:00 36.56 [facility] Body height 2021-11-27 16:12:00 167.6 cm [facility] Body weight 2021-11-27 16:12:00 86.093 kg [facility] BMI 2021-11-27 16:12:00 30.63 kg/m2 [facility] HEIGHT 2021-11-23 10:24:00 167.6 cm WEIGHT 2021-11-23 10:24:00 82.6 kg HEIGHT 2021-11-19 11:36:00 167.6 cm WEIGHT 2021-11-19 11:36:00 86.183 kg HEIGHT 2021-11-23 10:24:00 167.6 cm WEIGHT 2021-11-23 10:24:00 82.6 kg HEIGHT 2021-11-19 11:36:00 167.6 cm WEIGHT 2021-11-19 11:36:00 86.183 kg Systolic blood 2021-11-04 18:30:00 127 mm[Hg] [facility] Medicine Diastolic blood 2021-11-04 18:30:00 84 mm[Hg] [facility] Medicine Heart rate 2021-11-04 18:30:00 78 /min [facility] Body temperature 2021-11-04 18:30:00 36.28 [facility] BP Diastolic 2021-09-28 00:00:00 87 mm[Hg] [facility] BP Systolic 2021-09-28 00:00:00 133 mm[Hg] [facility] Body Weight 2021-09-28 00:00:00 187.8 [lb_av] [place] [facility] HEIGHT 2021-09-26 11:14:00 167.6 cm WEIGHT 2021-09-26 11:14:00 86.183 kg HEIGHT 2021-09-26 11:14:00 167.6 cm WEIGHT 2021-09-26 11:14:00 86.183 kg Systolic blood 2022-03-25 14:15:00 111 mm[Hg] [facility] Diastolic blood 2022-03-25 14:15:00 80 mm[Hg] [facility] Heart rate 2022-03-25 14:15:00 63 /min [facility] Body temperature 2022-03-25 14:15:00 36.72 [facility] Respiratory rate 2022-03-25 14:15:00 13 /min [facility] Oxygen saturation in 2022-03-25 14:15:00 97 /min [facility] Arterial blood by Medical Ce nter Pulse oximetry Body height 2022-03-25 11:18:00 167.6 cm [facility] Body weight 2022-03-25 11:18:00 70.58 kg [facility] BMI 2022-03-25 11:18:00 25.11 kg/m2 [facility] Procedures Procedure Date / Time Performing Clinician Source Performed EXAM UNDER ANESTHESIA, 2022-03-25 12:19:00 Lavinia [facility] SIGMOIDOSCOPY 2022-03-25 12:19:00 Lavinia [facility] MANOMETRY, ANORECTAL 2022-03-05 13:16:00 Yelitza Hatch CH, I [facility] EXAM UNDER ANESTHESIA, 2021-11-23 11:47:00 Lavinia [facility] RECTUM [place] FISTULECTOMY, RECTUM 2021-11-23 11:47:00 Lavinia [facility] CULTURE, 2021-11-04 14:20:30 [facility] ge of URINE/SENSITIVITY ON ALL Medicin e MRI ABD/PELVIC EXTERNAL 2021-09-01 19:51:00 Michael Cintron [facility] STUDY Plan of Care Planned Activity Planned Date Details Comments Source Future Scheduled 2022-04-02 COVID-19 Vaccine (#1) [place] [facility] [place] [facility] 10:52:39 [code = COVID-19 of Medicine Vaccine (#1)] Future Scheduled 2022-04-02 TETANUS SHOT (ADULT) [place] [facility] Test 10:52:39 [code = TETANUS SHOT of Medi cine (ADULT)] Future Scheduled 2022-04-[address] UP PLAN [facility] r [facility] Test 10:52:39 [code = BMI FOLLOW UP of Med icine PLAN] Future Scheduled 2022-04-02 Hepatitis C screening [facility] [place] [facility] 10:52:39 (procedure) [code = of Medic ine 403595007] Future Scheduled 2022-04-02 Human immunodeficiency [facility] Test 10:52:39 virus screening of Medicine (procedure) [code = 090820838] Future Scheduled 2022-04-02 MEDICARE IPPE (WELCOME [facility] Test 10:52:39 TO MEDICARE) [code = of Medi cine MEDICARE IPPE (WELCOME TO MEDICARE)] Future Scheduled 2022-04-02 FLU VACCINE > 6 MONTHS [facility] Test 10:52:39 [code = FLU VACCINE > of Med icine 6 MONTHS] Future Scheduled 2022-03-21 HEPATITIS B VACCINES [facility] 06:07:35 (1 of 3 - 3-dose Hospital series) [code = HEPATITIS B VACCINES (1 of 3 - 3-dose series)] Future Scheduled 2022-03-21 COVID-19 VACCINE (#1) [facility] 06:07:35 [code = COVID-19 Hospital VACCINE (#1)] Future Scheduled 2022-03-21 Hepatitis C screening [facility] 06:07:35 (procedure) [code = Hospital 851114199] Future Scheduled 2022-03-21 INFLUENZA VACCINE Method ist Test 06:07:35 [code = INFLUENZA Hospital VACCINE] Future Scheduled 2022-03-18 INFLUENZA VACCINE (#1) [facility] 00:00:00 [code = INFLUENZA Medical Ce nter VACCINE (#1)] Future Scheduled 2022-02-16 ANOREC MANOM AND 1 Occurrences [employer] Test 10:51:03 EMG-GI DEPT [code = starting of Medic ine NOCPT] 02/16/2022 until 08/19/2022 Future Scheduled 2022-01-26 COVID-19 Vaccine (#1) [employer] [employer] [facility] 09:43:53 [code = COVID-19 of Medicine Vaccine (#1)] Future Scheduled 2022-01-26 TETANUS SHOT (ADULT) [place] [facility] [employer] Test 09:43:53 [code = TETANUS SHOT of Medi cine (ADULT)] Future Scheduled 2022-01-26 BMI FOLLOW UP PLAN [employer] Test 09:43:53 [code = BMI FOLLOW UP of Med icine PLAN] Future Scheduled 2022-01-26 Hepatitis C screening [employer] [employer] [facility] 09:43:53 (procedure) [code = of Medic ine 535431239] Future Scheduled 2022-01-26 Human immunodeficiency [facility] [employer] [employer] Test 09:43:53 virus screening of Medicine (procedure) [code = 900963889] Future Scheduled 2022-01-26 FLU VACCINE > 6 MONTHS [facility] [employer] [employer] [facility] 09:43:53 [code = FLU VACCINE > of Med icine 6 MONTHS] Future Scheduled 2022-01-06 COVID-19 Vaccine (#1) [employer] [employer] [facility] 09:26:51 [code = COVID-19 of Medicine Vaccine (#1)] Future Scheduled 2022-01-06 TETANUS SHOT (ADULT) [place] [facility] [employer] Test 09:26:51 [code = TETANUS SHOT of Medi cine (ADULT)] Future Scheduled 2022-01-06 BMI FOLLOW UP PLAN [employer] Test 09:26:51 [code = BMI FOLLOW UP of Med icine PLAN] Future Scheduled 2022-01-06 Hepatitis C screening [employer] [facility] 09:26:51 (procedure) [code = of Medic ine 129494628] Future Scheduled 2022-01-06 Human immunodeficiency [employer] Test 09:26:51 virus screening of Medicine (procedure) [code = 862868148] Future Scheduled 2022-01-06 FLU VACCINE > 6 MONTHS [employer] [facility] 09:26:51 [code = FLU VACCINE > of Med icine 6 MONTHS] Future Scheduled 2021-12-16 COVID-19 Vaccine (#1) [employer] [facility] 10:55:32 [code = COVID-19 of Medicine Vaccine (#1)] Future Scheduled 2021-12-16 TETANUS SHOT (ADULT) [place] [facility] [employer] Test 10:55:32 [code = TETANUS SHOT of Medi cine (ADULT)] Future Scheduled 2021-12-16 BMI FOLLOW UP PLAN [employer] [facility] 10:55:32 [code = BMI FOLLOW UP of Med icine PLAN] Future Scheduled 2021-12-16 Hepatitis C screening [employer] [facility] 10:55:32 (procedure) [code = of Medic ine 702493218] Future Scheduled 2021-12-16 Human immunodeficiency [employer] Test 10:55:32 virus screening of Medicine (procedure) [code = 015078678] Future Scheduled 2021-12-16 FLU VACCINE > 6 MONTHS [employer] [facility] 10:55:32 [code = FLU VACCINE > of Med icine 6 MONTHS] Future Scheduled 2021-12-15 COVID-19 Vaccine (#1) [employer] [facility] 21:52:18 [code = COVID-19 of Medicine Vaccine (#1)] Future Scheduled 2021-12-15 TETANUS SHOT (ADULT) [place] [facility] [employer] Test 21:52:18 [code = TETANUS SHOT of Medi cine (ADULT)] Future Scheduled 2021-12-15 BMI FOLLOW UP PLAN [employer] [facility] 21:52:18 [code = BMI FOLLOW UP of Med icine PLAN] Future Scheduled 2021-12-15 Hepatitis C screening [employer] [facility] 21:52:18 (procedure) [code = of Medic ine 774441983] Future Scheduled 2021-12-15 Human immunodeficiency [employer] Test 21:52:18 virus screening of Medicine (procedure) [code = 051508841] Future Scheduled 2021-12-15 FLU VACCINE > 6 MONTHS [employer] [facility] 21:52:18 [code = FLU VACCINE > of Med icine 6 MONTHS] Future Scheduled 2021-12-15 COVID-19 Vaccine (#1) [employer] [facility] 21:52:18 [code = COVID-19 of Medicine Vaccine (#1)] Future Scheduled 2021-12-15 TETANUS SHOT (ADULT) [place] [facility] [employer] Test 21:52:18 [code = TETANUS SHOT of Medi cine (ADULT)] Future Scheduled 2021-12-15 BMI FOLLOW UP PLAN [employer] [facility] 21:52:18 [code = BMI FOLLOW UP of Med icine PLAN] Future Scheduled 2021-12-15 Hepatitis C screening [employer] [facility] 21:52:18 (procedure) [code = of Medic ine 216168944] Future Scheduled 2021-12-15 Human immunodeficiency [employer] Test 21:52:18 virus screening of Medicine (procedure) [code = 504163879] Future Scheduled 2021-12-15 FLU VACCINE > 6 MONTHS [employer] [facility] 21:52:18 [code = FLU VACCINE > of Med icine 6 MONTHS] Future Scheduled 2021-12-09 COVID-19 Vaccine (#1) [employer] [facility] 11:09:55 [code = COVID-19 of Medicine Vaccine (#1)] Future Scheduled 2021-12-09 TETANUS SHOT (ADULT) [place] [facility] [employer] [facility] 11:09:55 [code = TETANUS SHOT of Medi cine (ADULT)] Future Scheduled 2021-12-09 BMI FOLLOW UP PLAN [employer] [facility] 11:09:55 [code = BMI FOLLOW UP of Med icine PLAN] Future Scheduled 2021-12-09 Hepatitis C screening [employer] [facility] 11:09:55 (procedure) [code = of Medic ine 850383782] Future Scheduled 2021-12-09 Human immunodeficiency [employer] Test 11:09:55 virus screening of Medicine (procedure) [code = 428768081] Future Scheduled 2021-12-09 FLU VACCINE > 6 MONTHS [employer] [facility] 11:09:55 [code = FLU VACCINE > of Med icine 6 MONTHS] Future Scheduled 2021-11-27 COVID-19 Vaccine (1) [place] [employer] [employer] [facility] 14:02:00 [code = COVID-19 of Medicine Vaccine (1)] Future Scheduled 2021-11-27 TETANUS SHOT (ADULT) [place] [employer] [employer] Test 14:02:00 [code = TETANUS SHOT of Medi cine (ADULT)] Future Scheduled 2021-11-27 BMI FOLLOW UP PLAN [employer] [facility] 14:02:00 [code = BMI FOLLOW UP of Med icine PLAN] Future Scheduled 2021-11-27 Hepatitis C screening [employer] [facility] 14:02:00 (procedure) [code = of Medic ine 106619080] Future Scheduled 2021-11-27 Human immunodeficiency [employer] Test 14:02:00 virus screening of Medicine (procedure) [code = 038107949] Future Scheduled 2021-11-27 FLU VACCINE > 6 MONTHS [employer] Test 14:02:00 [code = FLU VACCINE > of Med icine 6 MONTHS] Future Scheduled 2021-11-04 CULTURE, Ordered: [facility] Test 14:20:30 URINE/SENSITIVITY ON 11/04/2021 of Medi cine ALL [code = 97203-9] Future Scheduled 2021-07-[address] [facility] Test 00:00:00 (12+) [code = Medical Center DEPRESSION SCREENING (12+)] Future Scheduled 2013 DTAP/TDAP/TD [facility]ACCINES [facility] 00:00:00 (1 - Tdap) [code = Medical C enter DTAP/TDAP/TD VACCINES (1 - Tdap)] Future Scheduled 2012 HEPATITIS C [facility]CRE[facility]ING [facility] 00:00:00 [code = HEPATITIS C Medical Center SCREENING] Future Scheduled 1994 COVID-19 VACCINE (#1) [facility] 00:00:00 [code = COVID-[address] VACCINE (#1)] Instructions [facility] Health Outreach Program Encounters Start End Encounter Admission Attending Care Care Encounter Source Date/Time Date/Time Type Type Clinicians Facility Department ID 2021-08-[address] [facility] [id number] Common 14:38:55 Renetta [facility] 2021-08-12 Outpatient Kendall [facility] [id number] Common 14:11:37 Renetta [facility] 2022-03-25 2022-03-25 Outpatient [facility] [id number] [facility] 11:09:00 23:59:00 Stacyin jaycee 2022-03-25 2022-03-25 Outpatient [facility] SLE Surgery [id number] [facility] 11:09:00 14:37:00 2022-03-25 2022-03-25 [facility] [id number] [facility] 11:09:00 14:37:00 Encounter [facility] 2022-03-25 2022-03-25 Surgery [facility] [id number] 12[facility]40[facility]00 14:10:00 [facility] 2022-03-25 2022-03-25 Anesthesia Gissell Hudson [facility] [id number] 12:34:00 13:40:[address] [facility] 2022-03-25 2022-03-25 Travel [facility] [id number] [facility] 00:[facility]00 00:[facility]:00 [facility] 2022-03-05 2022-03-05 Outpatient [facility] Surgery [id number] SLE 13:01:00 15:06:00 [facility] 2022-03-05 2022-03-05 [facility] [id number] 13:01:00 15:06:00 Encounter [facility] 2022-03-05 2022-03-05 [facility] [id number] 13:30:00 15:00:00 [facility] 2022-03-05 2022-03-05 Outpatient SYEDA [facility] [id number] [facility] 10:17:46 10:17:46 YELITZA champion of Medicin e 2022-03-01 2022-03-01 Outpatient [facility] [id number] [facility] 14:51:58 23:59:00 2022-03-01 2022-03-01 [facility] [id number] 14:20:00 23:59:00 Encounter [facility] 2022-03-01 2022-03-01 Travel [facility] [id number] [facility] 00:[facility]00 00:00:00 [facility] 2022-02-16 2022-02-[address] [facility] 1.2.840.114 [id number] [facility] 10:15:00 11:50:40 Visit Nam 350.1.13.21 Co llege 0.2.7.2.686 of [id number] Medi leigh 510 e 2022-01-26 2022-01-26 [facility] 1.2.840.114 [id number] [facility] 09:00:00 10:39:12 Visit Nam 350.1.13.21 Co llege 0.2.7.2.686 of [id number] Medi leigh 510 e 2021-12-30 2021-12-30 Office LAVINIA, [facility] 1.2.840.114 [id number] [facility] 10:25:32 12:29:41 Visit Nam 350.1.13.21 Co llege 0.2.7.2.686 of [id number] [facility] leigh 510 e 2021-12-29 2021-12-29 Outpatient [facility] 117 [id number]- [place] 06:27:00 06:27:00 N 03939 [facility] 2021-12-21 2021-12-21 [facility] [id number] -[id number] [place] 00:00:00 00:00:00 Jayantilal N [place] [address] d graciela Cervantes MD: [facility] Epi scop 1700 [facility] [address] [facility] , Ph. ([phone]) --20072021-12-15 2021-12-15 Office LAVINIA [facility] 1.2.840.114 [id number] [facility] 10:15:01 11:56:11 Visit Nam 350.1.13.21 Co llege 0.2.7.2.686 of [id number] Medi leigh 510 e 2021-12-09 2021-12-09 Office LAVINIA, [facility] 1.2.840.114 [id number] [facility] 09:52:01 12:55:25 Visit Nam 350.1.13.21 Co llege 0.2.7.2.686 of [id number] Medi leigh 510 e 2021-12-09 2021-12-09 Office TJ Contreras 1.2.840.114 [id number] [facility] 11:15:00 11:30:00 Visit Mariano AMBULATOR 350.1.13.21 College Y 0.2.7.2.686 of [id number] Medi leigh 300 e 2021-12-07 2021-12-07 Chris [facility] [place] - [id number] -202 [place] 00:00:00 00:00:00 Scooter Meza patel Cervantes MD: [facility]ish Epi scop 1700 [facility] mounika Mclean [facility] [address] [facility] , Ph. [phone] 245--20072021-11-27 2021-11-[address] [facility] 1.2.840.114 [id number] [facility] 11:00:00 12:17:32 Visit Elizabeth Nam 350.1.13.21 Co llege 0.2.7.2.686 of [id number] Medi leigh 510 e 2021-11-24 2021-11-24 Orders [facility] [id number] 00:00[facility]00 00:00:00 [facility] 2021-11-24 2021-11-24 [facility] [id number] 00:00:00 00:00:00 [facility] 2021-11-23 2021-11-23 Outpatient [facility] SLE Surgery [id number] SLE 09:54:00 20:00:00 2021-11-23 2021-11-23 [facility] [id number] 09:54:00 20:00:00 [facility] 2021-11-23 2021-11-23 [facility] [id number] 12:02:00 14:29:[address] [facility] 2021-11-23 2021-11-23 Surgery [facility] [id number] 12:00:00 13:35:00 [facility] 2021-11-23 2021-11-23 Outpatient M[facility]LU [facility] 117 520 [place] 04:48:00 04:48:00 N 13403 [facility] 2021-11-23 2021-11-23 Orders [facility] [id number] 00:00:00 00:00:[address] [facility] 2021-11-23 2021-11-23 Travel [facility] [id number] [facility] 00:00[facility]00 00:00:00 [facility] 2021-11-19 2021-11-19 Outpatient EL [facility] [id number] [facility] 11:39:44 23:59:00 2021-11-19 2021-11-19 [facility] [id number] 10:05:00 23:59:00 Encounter [facility] 2021-11-19 2021-11-19 Travel [facility] [id number] [facility] 00:00[facility]00 00:00:00 [facility] 2021-11-18 2021-11-18 Outpatient [id number] [facility]202 [place] 02:57:00 02:57:00 [id number] [facility] 2021-11-10 2021-11-10 [facility] [id number] - [place] 00:00:00 00:00:00 Criss Fierro da PSYD: 1700 [facility] Epi scop [facility] al Richarde, [facility] [address] h , Ph. Program [phone]) [phone]--20072021-11-04 2021-11-04 Office TJ CONTRERAS 1.2.840.[id number] [place] [address] 11:34:49 11:34:49 Visit MARIANO AMBULATOR 350.1.13.21 College Y 0.2.7.2.686 [id number] Medi leigh 300 e 2021-10-27 2021-10-27 Outpatient KARAN KATE [facility] [id number] [facility] 10:00:28 10:12:48 Colleg e of Medicin e 2021-10-27 2021-10-27 Andrea VALERO [facility] [place] - [id number] -202 [place] 00:00:00 00:00:00 Criss Fierro da PSYD: 1700 [facility] Epi scop [facility] [address] h , Ph. Program (209) --20072021-10-09 2021-10-09 Outpatient MARYLU [facility] 117 520 [place] 02:44:00 02:44:00 N da [facility] 2021-10-06 2021-10-06 Outpatient KARAN KATE [facility] [id number] [facility] 14:49:21 16:24:28 Colleg e of Medicin e 2021-10-05 2021-10-05 Outpatient MARYLU [facility] 117 [place] 06:21:00 06:21:00 N 50408 [facility] 2021-10-01 2021-10-01 Orders [facility] 1.2.840.1 [id number] Methodi 00:00:00 00:00:00 Only my, [address].1.[address] [facility] 3.430.2.7 Hospi [facility] .3.569046 l .8 2021-09-28 2021-09-28 Chris VALERO [facility] [place] - [id number] -202 [place] 00:00:00 00:00:00 Scooter Meza 17486 patel Cervantes MD: [facility] Epi scop 1700 HOP [facility] [address] [facility] , Ph. ([phone] --20072021-09-26 2021-09-26 Emergency ER SAMMIE ORNELAS Emergency [id number] SLE 11:09:00 13:32:00 CHRIS 2021-09-26 2021-09-26 [facility] [id number] [facility] 11:09:00 13:32:00 [facility] 2021-09-15 2021-09-15 Andrea Pitt SAGDAVIDEDeannaQUENTIN [facility] - [id number] - [place] 00:00:00 00:00:00 Criss Fierro [place] da PSYD: 1700 [facility] Epi scop [facility] - [facility] Outre [address] h , Ph. Program ([phone]) --20072021-09-09 2021-09-09 Outpatient [facility] [id number] [place] 04:22:00 04:22:00 [facility] 2021-09-07 2021-09-07 [facility] Michael 1.2.840.1 [id number] Methodi 12:18:50 23:59:00 Encounter Willie 68220.1.1 987 s t 3.430.2.7 Hospit a .3.913870 l .8 2021-09-07 2021-09-07 Outpatient [facility] [id number] [place] 00:00:00 00:00:[address] 2021-09-07 2021-09-07 Andrea [facility] - [id number] - [place] 00:00:00 00:00:00 Criss [place] da PSYD: 1700 [facility] Epi scop [facility] Outre [address] h , Ph. Program (548) -20072021-09-04 2021-09-04 Outpatient SAGLIME_QUENTIN [facility] 117 520- [place] 03:37:00 03:37:00 N 58383 da [facility] 2021-08-312021-08-31 Michael Teresa 1.2.840.6 [id number] Methodi 00:00:00 00:00:00 Only Willie [address]13.1.[address] 3.430.2.7 Hospit a .3.112042 l .8 2021-08-28 2021-08-28 Outpatient Goldfarb_D [facility] [id number] 62 [place] 10:12:00 10:12:00 [facility] 2021-08-27 2021-08-27 Outpatient Goldfarb_D [facility] [id number] 62 [place] 03:33:00 03:33:00 [facility] 2021-08-27 2021-08-27 Outpatient Ruy, [facility] U [id number] 00:00:00 00:00:00 Bakari Santoro [id number] 2021-08-25 2021-08-25 Outpatient Goldfarb_D [facility] [place] [place] 4675 62 [place] 12:54:00 12:54:00 [facility] 2021-08-24 2021-08-24 Andrea VALERO [place] - [id number] -202 [facility] 00:00:00 00:00:00 Criss Fierro da PSYD: 1700 [facility]ish Epi scop [facility] [address] h , Ph. Program ([phone]) [phone]--[phone] 2021-08-20 Outpatient Goldfarb_D U [facility] [place] [place] 4675 [id number] [place] 12:26:00 12:26:00 [facility] 2021-08-20 2021-08-20 Michael Teresa [id number] [facility]i 00:00:00 00:00:00 Only Willie [id number] [id number] Hospit a .[id number] l .8 2021-08-10 2021-08-10 Outpatient SAGLIME_JOH MEHOP MEHOP [phone] [place] 07:48:00 07:48:00 [facility] 2021-08-05 2021-08-05 Outpatient ZACHARIAHERICHARD MEHOP MEHOP [phone] [place] 10:48:00 10:48:00 [facility] 2021-08-03 2021-08-03 Andrea VALERO [facility] [place] - [id number] -[id number] [place] 00:00:00 00:00:00 Criss Fierro da PSYD: [address] [employer] [address], [facility] Outre [phone] h , Ph. Program (979) --20072021-07-27 2021-07-27 Andrea VALERO [facility] [place] - [id number] - [place] 00:00:00 00:00:00 Criss Fierro da PSYD: 1700 [employer] [facility] [facility] [address], [facility] Outre [phone] h , Ph. Program (979) --20072021-07-26 2021-07-26 Outpatient [facility] [address] [place] 05:57:00 05:57:00 [facility] 2021-07-24 2021-07-24 ambulatory STLMLC STLMLC [id number] Common 00:00:00 00:00:00 [facility] 2021-07-22 2021-07-22 ambulatory STLMLC STLMLC [id number] Common 00:00:00 00:00:00 [facility] 2021-07-16 2021-07-16 Outpatient ZACHARIAHERICHARD [facility] NV[facility]OP 117 - [place] 04:19:00 04:19:00 N [id number] [facility] 2021-07-09 2021-07-09 ambulatory STLMLC STLMLC [id number] Common 00:00:00 00:00:00 [facility] 2021-07-08 2021-07-08 Outpatient Zuniga_S [facility] [id number] [place] 02:09:00 02:09:00 [facility] 2021-07-06 2021-07-06 ambulatory STLMLC STLMLC [id number] Common 00:00:00 00:00:00 [facility] 2021-06-30 2021-06-30 Andrea [facility] - [id number] -[id number] [place] 00:00:00 00:00:00 Criss Fierro [id number] da PSYD: 1700 [employer] [id number] [facility] , Ph. Program (114) --20072021-06-22 2021-06-22 ambulatory STLMLC STLMLC [id number] Common 00:00:00 00:00:00 [facility] 2021-06-08 2021-06-08 [facility] [id number] -202 [place] 00:00:00 00:00:00 Criss Fierro [id number] da PSYD: 1700 [facility] [phone] h , Ph. Program (759) --20072021-05-27 2021-05-27 ambulatory STLMLC STLMLC [id number] Common 00:00:00 00:00:00 [facility] 2021-05-26 2021-05-26 Outpatient [facility] 117 [id number]- [place] 11:02:00 11:02:00 N [id number] [facility] Results This patient has no known results.
[2022-04-08 17:39] LABS: Absolute Lymphocytes (CBC) 2.1 K/uL (0.7-4.9); Hematocrit 41.3 % (39.6-49.0); Lymphocytes % 13.7 % (15.3-44.8); MCV 89.4 fL (80-100); MPV 7.9 fL (7.6-11.3); RBC Red Blood Cell Count 4.62 M/uL (4.33-5.43)
[2022-04-08 17:52] LABS: Albumin 3.8 g/dL (3.4-5.0); Bilirubin Total 0.2 mg/dL (0.2-1.0); Potassium 3.7 mmol/L (3.5-5.1); Protein, Total 7.8 g/dL (6.4-8.2)
[2022-04-08 20:15] LABS: Protime INR 1.06
[2022-04-08 20:31] LABS: SARS-CoV-2 Antigen Rapid Res Negative (Negative)
[2022-04-08] MEDS ORDERED: PROMETHAZINE INJ 25 MG/ML AMP ONE (20:53)
[2022-04-08] MEDS ORDERED: CLINDAMYCIN 600MG/D5W 600 MG/50 ML BAG IV ONE (20:53)
[2022-04-08] MEDS ORDERED: MORPHINE 4 MG/ML SYR ONE (20:53)
[2022-04-08] MEDS ORDERED: MORPHINE 2 MG/ML SYR ONE (20:55)
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
[2022-04-08] MEDS ORDERED: NA CHLORIDE 0.9% 1,000 ML ONE ×2 (22:01→23:22)
[2022-04-08] MEDS ORDERED: HYDROMORPHONE HCL 1 MG/ML INJ ONE (22:05)
[2022-04-08 22:50] LABS: Urine Blood Negative (Negative); Urine Glucose Negative (Negative); Urine Protein Negative (Negative)
[2022-04-08 23:02] LABS: Urine Bacteria <20 /HPF (<20); Urine Mucus Slight /HPF (None Seen); Urine RBC <5 /HPF (None Seen)
[2022-04-08] MEDS ORDERED: FENTANYL CITR 100 MCG/2 ML ONE (23:21)
[2022-04-10 11:12] VITALS: O2SAT 100
[2022-04-10 11:21] VITALS: BP 139/103; TEMP 98.6
== END 2022-04-08 23:30 | disposition short-term general hospital (02) ==
LOC: ER 16:18
DX: L03.317 Cellulitis of buttock (principal); L02.31 Cutaneous abscess of buttock; Z20.822 Contact with and (suspected) exposure to COVID-19; Z72.0 Tobacco use
CPT/HCPCS: 87040 ×2; 85025; 87086; 36415; 85610; 83605; 85730; 80053; 96372; 99283; 87811; J2550; J3010; J2270; J1170; J7030 ×2; 81003; 81015; 87088